=== PATIENT | female | born 1960 | race Caucasian/White ===

== ENCOUNTER 2020-07-03 07:49 | Outpatient (REF) | payer OTHER, SELFPAY ==
[2020-07-03 08:13] LABS: MANUAL DIFF FLAG NO
[2020-07-03 08:15] LABS: Basophils Percent Auto 0.4 % (0-2); Eosinophils Absolute Auto 0.2 X10*3/uL (0.0-0.4); Eosinophils Percent Auto 2.7 % (0-4); Hematocrit 43.5 % (37-47); Hemoglobin 13.6 g/dl (12.0-16.0); Imm Gran Abs Auto 0.02 X10*3/uL (0.00-0.03); Imm Gran Pct Auto 0.3 % (0.0-0.4); Lymphocytes Absolute Auto 1.7 X10*3/uL (1.2-4.9); Lymphocytes Percent Auto 25.4 % (20-40); Mean Corpuscular HGB Conc 31.3 g/dl (31.0-35.0); Mean Corpuscular Volume 80.1 fL (80-98); Mean Platelet Volume 9.3 fL (9.4-12.3); Monocytes Absolute Auto 0.4 X10*3/uL (0.1-1.2); Monocytes Percent Auto 5.2 % (2-11); Neutrophils Absolute Auto 4.5 X10*3/uL (2.0-8.3); Platelet Count 289 X10*3/uL (160-400); Red Blood Count 5.43 X10*6/uL (4.20-5.50); Red Cell Distribution Width 14.6 % (11.0-16.0); White Blood Count 6.7 X10*3/uL (4.8-10.8)
[2020-07-03 08:16] LABS: Appearance Urine CLEAR; Color Urine YELLOW; Glucose Urine UA NEG (NEG); Leukocyte Esterase Urine NEG (NEG); Nitrite Urine NEG (NEG); PH 5.5 (5.0-8.0); Specific Gravity - Urine >= 1.030 (1.005-1.025); Urine Blood NEG (NEG); Urine Ketones NEG (NEG); Urine Protein NEG (NEG-TRACE)
[2020-07-03 08:37] LABS: Estimated Average Glucose 189 mg/dL; Hemoglobin A1c % 8.2 %
[2020-07-03 08:48] LABS: Alanine Aminotransferase 28 U/L (0-31); Albumin Level 4.2 g/dL (3.5-5.0); Alkaline Phosphatase 106 U/L (39-117); Anion Gap 13 (12-20); Aspartate Amino Transferase 20 U/L (5-31); Bilirubin Total 0.8 mg/dL (0.0-1.0); Blood Urea Nitrogen 20 mg/dL (9-16); Carbon Dioxide 27 mmol/L (22-29); Chloride 103 mmol/L (96-108); Cholesterol 216 mg/dL; Estimated Glomerular Filt Rate 59; Glucose Fasting 171 mg/dL (60-99); HDL Cholesterol 57 mg/dL; LDL Cholesterol Calculated 136 mg/dl; Potassium 4.5 mmol/l (3.3-5.1); Sodium 138 mmol/L (135-145); Total Protein 7.8 g/dL (6.5-8.0); Triglycerides 117 mg/dL
[2020-07-03 08:49] LABS: Creatinine Urine 113.69 mg/dL; Microalbum/Creatinine Ratio Ur 49.2 ug/mg cr
[2020-07-03 08:57] LABS: Bacteria Urine TRACE /LPF; RBC Urine 0 /HPF (0); Squamous Epithelial Cell Urine 4+ /LPF; WBC Urine 0 /HPF (0-4)
[2020-07-03 09:10] LABS: TSH reflex Free T4 2.54 mIU/mL (0.32-4.0)
== END 2020-07-03 07:50 | disposition home or self-care (01) ==
LOC: HO.LAB 07:49
PROVIDERS: PCP Internal Medicine; Visit Provider Internal Medicine
DX: E78.00 Pure hypercholesterolemia, unspecified (principal); E11.9 Type 2 diabetes mellitus without complications; R79.89 Other specified abnormal findings of blood chemistry; K21.9 Gastro-esophageal reflux disease without esophagitis; E66.9 Obesity, unspecified
CPT/HCPCS: 36415; 80053; 80061; 81001; 82043; 83036; 84443; 85025

== ENCOUNTER 2020-10-30 07:54 | Outpatient (REF) | payer OTHER, SELFPAY ==
[2020-10-30 09:09] LABS: MANUAL DIFF FLAG NO
[2020-10-30 09:17] LABS: Basophils Percent Auto 0.5 % (0-2); Eosinophils Absolute Auto 0.2 X10*3/uL (0.0-0.4); Hematocrit 40.6 % (37-47); Hemoglobin 12.7 g/dl (12.0-16.0); Imm Gran Abs Auto 0.01 X10*3/uL (0.00-0.03); Imm Gran Pct Auto 0.2 % (0.0-0.4); Lymphocytes Absolute Auto 1.9 X10*3/uL (1.2-4.9); Lymphocytes Percent Auto 28.9 % (20-40); Mean Corpuscular HGB Conc 31.3 g/dl (31.0-35.0); Mean Corpuscular Hemoglobin 24.9 pg (27.0-33.0); Mean Corpuscular Volume 79.6 fL (80-98); Mean Platelet Volume 9.5 fL (9.4-12.3); Monocytes Absolute Auto 0.5 X10*3/uL (0.1-1.2); Monocytes Percent Auto 6.8 % (2-11); Neutrophils Percent Auto 60.6 % (45-73); Platelet Count 236 X10*3/uL (160-400); Red Cell Distribution Width 13.9 % (11.0-16.0); White Blood Count 6.6 X10*3/uL (4.8-10.8)
[2020-10-30 09:33] LABS: Glucose Urine UA NEG (NEG); Leukocyte Esterase Urine NEG (NEG); Nitrite Urine NEG (NEG); PH 5.5 (5.0-8.0); Specific Gravity - Urine >= 1.030 (1.005-1.025); Urine Blood NEG (NEG); Urine Ketones NEG (NEG); Urine Protein TRACE MG/DL (NEG-TRACE)
[2020-10-30 09:34] LABS: Appearance Urine HAZY; Color Urine YELLOW
[2020-10-30 09:35] LABS: Estimated Average Glucose 212 mg/dL
[2020-10-30 09:45] LABS: Alanine Aminotransferase 39 U/L (0-31); Alkaline Phosphatase 116 U/L (39-117); Anion Gap 13 (12-20); Aspartate Amino Transferase 26 U/L (5-31); Bilirubin Total 0.5 mg/dL (0.0-1.0); Blood Urea Nitrogen 18 mg/dL (9-16); Calcium 9.1 mg/dL (8.4-10.2); Carbon Dioxide 26 mmol/L (22-29); Chloride 103 mmol/L (96-108); Cholesterol 237 mg/dL; Estimated Glomerular Filt Rate > 60; Glucose Fasting 193 mg/dL (60-99); HDL Cholesterol 47 mg/dL; LDL Cholesterol Calculated 166 mg/dl; Potassium 4.2 mmol/L (3.3-5.1); Sodium 138 mmol/L (135-145); Total Protein 7.6 g/dL (6.5-8.0); Triglycerides 123 mg/dL
[2020-10-30 09:59] LABS: TSH reflex Free T4 2.27 uIU/mL (0.32-4.0)
[2020-10-30 10:23] LABS: Creatinine Urine 202.92 mg/dL; Microalbum/Creatinine Ratio Ur 45.8 ug/mg cr
== END 2020-10-30 07:55 | disposition home or self-care (01) ==
LOC: HO.LAB 07:54
PROVIDERS: PCP Internal Medicine; Visit Provider Internal Medicine
DX: K21.9 Gastro-esophageal reflux disease without esophagitis (principal); E11.9 Type 2 diabetes mellitus without complications; E78.00 Pure hypercholesterolemia, unspecified; R79.89 Other specified abnormal findings of blood chemistry; E66.9 Obesity, unspecified; Z79.4 Long term (current) use of insulin
CPT/HCPCS: 36415; 80053; 80061; 81003; 82043; 83036; 84443; 85025

== ENCOUNTER 2021-01-25 07:57 | Outpatient (REF) | payer OTHER, SELFPAY ==
[2021-01-25 09:09] LABS: MANUAL DIFF FLAG NO
[2021-01-25 09:14] LABS: Basophils Percent Auto 0.3 % (0-2); Eosinophils Absolute Auto 0.2 X10*3/uL (0.0-0.4); Eosinophils Percent Auto 2.6 % (0-4); Hematocrit 42.2 % (37-47); Imm Gran Abs Auto 0.01 X10*3/uL (0.00-0.03); Imm Gran Pct Auto 0.1 % (0.0-0.4); Lymphocytes Absolute Auto 1.8 X10*3/uL (1.2-4.9); Lymphocytes Percent Auto 23.5 % (20-40); Mean Corpuscular HGB Conc 30.8 g/dl (31.0-35.0); Mean Corpuscular Hemoglobin 24.5 pg (27.0-33.0); Mean Corpuscular Volume 79.6 fL (80-98); Mean Platelet Volume 9.7 fL (9.4-12.3); Monocytes Absolute Auto 0.5 X10*3/uL (0.1-1.2); Monocytes Percent Auto 6.1 % (2-11); Neutrophils Absolute Auto 5.2 X10*3/uL (2.0-8.3); Neutrophils Percent Auto 67.4 % (45-73); Platelet Count 245 X10*3/uL (160-400); Red Cell Distribution Width 14.1 % (11.0-16.0); White Blood Count 7.7 X10*3/uL (4.8-10.8)
[2021-01-25 09:19] LABS: Estimated Average Glucose 220 mg/dL; Hemoglobin A1c % 9.3 %
[2021-01-25 09:25] LABS: Alanine Aminotransferase 27 U/L (0-31); Albumin Level 3.9 g/dL (3.5-5.0); Alkaline Phosphatase 109 U/L (39-117); Anion Gap 11 (12-20); Aspartate Amino Transferase 25 U/L (5-31); Bilirubin Total 0.4 mg/dL (0.0-1.0); Blood Urea Nitrogen 14 mg/dL (9-16); Calcium 9.2 mg/dL (8.4-10.2); Carbon Dioxide 28 mmol/L (22-29); Chloride 104 mmol/L (96-108); Cholesterol 173 mg/dL; Estimated Glomerular Filt Rate 57; Glucose Fasting 140 mg/dL (60-99); HDL Cholesterol 45 mg/dL; Potassium 4.1 mmol/L (3.3-5.1); Sodium 139 mmol/L (135-145); Total Protein 7.3 g/dL (6.5-8.0)
[2021-01-25 09:26] LABS: LDL Cholesterol Calculated 100 mg/dl; Triglycerides 140 mg/dL
[2021-01-25 09:46] LABS: TSH reflex Free T4 2.56 uIU/mL (0.32-4.0)
[2021-01-25 10:46] LABS: Creatinine Urine 172.63 mg/dL; Glucose Urine UA NEG (NEG); Leukocyte Esterase Urine NEG (NEG); Microalbum/Creatinine Ratio Ur 97.3 ug/mg cr; Nitrite Urine NEG (NEG); PH 5.5 (5.0-8.0); Specific Gravity - Urine >= 1.030 (1.005-1.025); Urine Blood NEG (NEG); Urine Ketones NEG (NEG); Urine Protein 1+ MG/DL (NEG-TRACE)
[2021-01-25 10:49] LABS: Appearance Urine HAZY; Color Urine YELLOW
[2021-01-25 11:03] LABS: Bacteria Urine 1+ /LPF; RBC Urine 0-2 /HPF (0); Squamous Epithelial Cell Urine 3+ /LPF
== END 2021-01-25 07:58 | disposition home or self-care (01) ==
LOC: HO.LAB 07:57
PROVIDERS: PCP Internal Medicine; Visit Provider Internal Medicine
DX: K21.9 Gastro-esophageal reflux disease without esophagitis (principal); E11.9 Type 2 diabetes mellitus without complications; E66.9 Obesity, unspecified; E78.00 Pure hypercholesterolemia, unspecified; R79.89 Other specified abnormal findings of blood chemistry; Z79.4 Long term (current) use of insulin
CPT/HCPCS: 36415; 80053; 80061; 81001; 82043; 83036; 84443; 85025

== ENCOUNTER 2021-01-31 14:51 | Emergency (ER) | payer OTHER, SELFPAY ==
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
[2021-01-31 15:19] VITALS: BP 165/84; PULSE 78; RESP 18; TEMP 36.7; O2SAT 100; BMI 34.6
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
[2021-01-31] MEDS: diazePAM 5 MG TABLET PO (16:52)
== END 2021-01-31 17:19 | disposition home or self-care (01) ==
PROVIDERS: Emergency Provider Emergency Medicine; PCP Internal Medicine
DX: S49.91XA Unspecified injury of right shoulder and upper arm, initial encounter (principal); M25.511 Pain in right shoulder; V43.52XA Car driver injured in collision with other type car in traffic accident, initial encounter; Y93.9 Activity, unspecified; Y92.410 Unspecified street and highway as the place of occurrence of the external cause; Y99.9 Unspecified external cause status; Z79.899 Other long term (current) drug therapy
CPT/HCPCS: 73030; 99283

== ENCOUNTER 2021-10-19 07:52 | Outpatient (REF) | payer OTHER, SELFPAY ==
[2021-10-19 08:23] LABS: MANUAL DIFF FLAG NO
[2021-10-19 08:44] LABS: Basophils Percent Auto 0.3 % (0-2); Eosinophils Absolute Auto 0.1 X10*3/uL (0.0-0.4); Eosinophils Percent Auto 1.4 % (0-4); Hematocrit 42.1 % (37.0-47.0); Hemoglobin 13.2 g/dl (12.0-16.0); Imm Gran Abs Auto 0.02 X10*3/uL (0.00-0.03); Imm Gran Pct Auto 0.3 % (0.0-0.4); Lymphocytes Absolute Auto 1.5 X10*3/uL (1.2-4.9); Lymphocytes Percent Auto 20.2 % (20-40); Mean Corpuscular HGB Conc 31.4 g/dl (31.0-35.0); Mean Corpuscular Hemoglobin 25.3 pg (27.0-33.0); Mean Corpuscular Volume 80.8 fL (80.0-98.0); Mean Platelet Volume 9.6 fL (9.4-12.3); Monocytes Absolute Auto 0.4 X10*3/uL (0.1-1.2); Monocytes Percent Auto 5.8 % (2-11); Neutrophils Absolute Auto 5.3 x10*3/uL (2.0-8.3); Platelet Count 240 X10*3/uL (160-400); Red Blood Count 5.21 X10*6/uL (4.20-5.50); Red Cell Distribution Width 14.9 % (11.0-16.0); White Blood Count 7.4 X10*3/uL (4.8-10.8)
[2021-10-19 08:54] LABS: Estimated Average Glucose 186 mg/dL; Hemoglobin A1c % 8.1 %
[2021-10-19 09:07] LABS: Alanine Aminotransferase 29 U/L (0-31); Albumin Level 4.1 g/dL (3.5-5.0); Alkaline Phosphatase 102 U/L (39-117); Anion Gap 12 (12-20); Aspartate Amino Transferase 21 U/L (5-31); Bilirubin Total 0.6 mg/dL (0.0-1.0); Blood Urea Nitrogen 20 mg/dL (9-16); Calcium 9.8 mg/dL (8.4-10.2); Carbon Dioxide 27 mmol/L (22-29); Chloride 105 mmol/L (96-108); Cholesterol 245 mg/dL; Estimated Glomerular Filt Rate 53; Glucose Fasting 124 mg/dL (60-99); HDL Cholesterol 49 mg/dL; LDL Cholesterol Calculated 172 mg/dl; Potassium 4.8 mmol/L (3.3-5.1); Sodium 139 mmol/L (135-145); Total Protein 7.7 g/dL (6.5-8.0); Triglycerides 124 mg/dL
[2021-10-19 09:17] LABS: Appearance Urine CLEAR; Color Urine YELLOW; Glucose Urine UA NEG (NEG); Leukocyte Esterase Urine NEG (NEG); Nitrite Urine NEG (NEG); PH 5.5 (5.0-8.0); Specific Gravity - Urine >= 1.030 (1.005-1.025); Urine Blood NEG (NEG); Urine Ketones NEG (NEG); Urine Protein TRACE MG/DL (NEG-TRACE)
[2021-10-19 09:29] LABS: TSH reflex Free T4 3.07 uIU/mL (0.32-4.0); Vitamin D 25-OH Total 19.5 ng/mL (>30)
== END 2021-10-19 07:53 | disposition home or self-care (01) ==
LOC: HO.LAB 07:52
PROVIDERS: PCP Internal Medicine; Visit Provider Internal Medicine
DX: E78.00 Pure hypercholesterolemia, unspecified (principal); E55.9 Vitamin D deficiency, unspecified; E11.9 Type 2 diabetes mellitus without complications; I10 Essential (primary) hypertension
CPT/HCPCS: 36415; 80053; 80061; 81003; 82306; 83036; 84443; 85025

== ENCOUNTER 2022-02-01 08:06 | Outpatient (REF) | payer OTHER, SELFPAY ==
[2022-02-01 08:25] LABS: MANUAL DIFF FLAG NO
[2022-02-01 08:34] LABS: Basophils Percent Auto 0.4 % (0-2); Eosinophils Absolute Auto 0.1 X10*3/uL (0.0-0.4); Eosinophils Percent Auto 1.8 % (0-4); Hematocrit 41.9 % (37.0-47.0); Hemoglobin 12.9 g/dl (12.0-16.0); Imm Gran Abs Auto 0.02 X10*3/uL (0.00-0.03); Imm Gran Pct Auto 0.3 % (0.0-0.4); Lymphocytes Absolute Auto 2.1 X10*3/uL (1.2-4.9); Lymphocytes Percent Auto 27.4 % (20-40); Mean Corpuscular HGB Conc 30.8 g/dl (31.0-35.0); Mean Corpuscular Hemoglobin 24.4 pg (27.0-33.0); Mean Corpuscular Volume 79.4 fL (80.0-98.0); Mean Platelet Volume 9.4 fL (9.4-12.3); Monocytes Absolute Auto 0.4 X10*3/uL (0.1-1.2); Monocytes Percent Auto 5.2 % (2-11); Neutrophils Percent Auto 64.9 % (45-73); Platelet Count 241 X10*3/uL (160-400); Red Blood Count 5.28 X10*6/uL (4.20-5.50); Red Cell Distribution Width 14.5 % (11.0-16.0); White Blood Count 7.7 X10*3/uL (4.8-10.8)
[2022-02-01 08:41] LABS: Estimated Average Glucose 183 mg/dL
[2022-02-01 08:49] LABS: Appearance Urine CLEAR; Color Urine YELLOW; Glucose Urine UA NEG (NEG); Leukocyte Esterase Urine NEG (NEG); Nitrite Urine NEG (NEG); PH 5.5 (5.0-8.0); Specific Gravity - Urine 1.025 (1.005-1.025); Urine Blood NEG (NEG); Urine Ketones NEG (NEG); Urine Protein TRACE MG/DL (NEG-TRACE)
[2022-02-01 09:01] LABS: Alanine Aminotransferase 39 U/L (0-31); Alkaline Phosphatase 108 U/L (39-117); Anion Gap 12 (12-20); Aspartate Amino Transferase 27 U/L (5-31); Bilirubin Total 0.6 mg/dL (0.0-1.0); Blood Urea Nitrogen 20 mg/dL (9-16); Calcium 9.2 mg/dL (8.4-10.2); Carbon Dioxide 27 mmol/L (22-29); Chloride 104 mmol/L (96-108); Cholesterol 191 mg/dL; Estimated Glomerular Filt Rate 55; Glucose Fasting 129 mg/dL (60-99); HDL Cholesterol 56 mg/dL; LDL Cholesterol Calculated 114 mg/dl; Sodium 139 mmol/L (135-145); Total Protein 7.5 g/dL (6.5-8.0); Triglycerides 107 mg/dL
[2022-02-01 09:09] LABS: Creatinine Urine 110.24 mg/dL; Microalbum/Creatinine Ratio Ur 102.5 ug/mg cr
[2022-02-01 09:23] LABS: TSH reflex Free T4 3.38 uIU/mL (0.32-4.0); Vitamin D 25-OH Total 33.4 ng/mL (>30)
== END 2022-02-01 08:07 | disposition home or self-care (01) ==
LOC: HO.LAB 08:06
PROVIDERS: PCP Internal Medicine; Visit Provider Internal Medicine
DX: I10 Essential (primary) hypertension (principal); E55.9 Vitamin D deficiency, unspecified; E11.9 Type 2 diabetes mellitus without complications; E78.00 Pure hypercholesterolemia, unspecified
CPT/HCPCS: 36415; 80053; 80061; 81003; 82043; 82306; 83036; 84443; 85025

== ENCOUNTER 2022-04-12 08:26 | Outpatient (REF) | payer OTHER, SELFPAY ==
[2022-04-12 09:00] LABS: IDNOW Serial# 55D5AD1C
[2022-04-12 09:01] LABS: COVID-19 Test Positive (Negative)
== END 2022-04-12 08:27 | disposition home or self-care (01) ==
LOC: HO.LAB 08:26
PROVIDERS: Visit Provider Internal Medicine
DX: Z20.822 Contact with and (suspected) exposure to COVID-19 (principal)
CPT/HCPCS: 87635; C9803

== ENCOUNTER 2022-05-27 08:06 | Outpatient (REF) | payer OTHER, SELFPAY ==
[2022-05-27 08:31] LABS: MANUAL DIFF FLAG NO
[2022-05-27 08:47] LABS: Basophils Percent Auto 0.5 % (0-2); Eosinophils Absolute Auto 0.1 X10*3/uL (0.0-0.4); Eosinophils Percent Auto 1.9 % (0-4); Hematocrit 43.7 % (37.0-47.0); Hemoglobin 13.7 g/dl (12.0-16.0); Imm Gran Abs Auto 0.01 X10*3/uL (0.00-0.03); Imm Gran Pct Auto 0.1 % (0.0-0.4); Lymphocytes Absolute Auto 1.8 X10*3/uL (1.2-4.9); Lymphocytes Percent Auto 24.8 % (20-40); Mean Corpuscular HGB Conc 31.4 g/dl (31.0-35.0); Mean Corpuscular Hemoglobin 24.7 pg (27.0-33.0); Mean Corpuscular Volume 78.9 fL (80.0-98.0); Monocytes Absolute Auto 0.5 X10*3/uL (0.1-1.2); Monocytes Percent Auto 6.8 % (2-11); Neutrophils Absolute Auto 4.8 x10*3/uL (2.0-8.3); Neutrophils Percent Auto 65.9 % (45-73); Platelet Count 255 X10*3/uL (160-400); Red Blood Count 5.54 X10*6/uL (4.20-5.50); Red Cell Distribution Width 14.1 % (11.0-16.0); White Blood Count 7.3 X10*3/uL (4.8-10.8)
[2022-05-27 08:53] LABS: Estimated Average Glucose 183 mg/dL
[2022-05-27 09:06] LABS: Appearance Urine Clear; Color Urine Yellow; Glucose Urine UA 250 mg/dL (Negative); Leukocyte Esterase Urine Negative (Negative); Nitrite Urine Negative (Negative); Urine Blood Negative (Negative); Urine Ketones Negative (Negative); Urine Protein Trace mg/dL (Neg-Trace)
[2022-05-27 09:08] LABS: Alanine Aminotransferase 33 U/L (0-31); Albumin Level 4.2 g/dL (3.5-5.0); Alkaline Phosphatase 111 U/L (39-117); Anion Gap 17 (12-20); Aspartate Amino Transferase 25 U/L (5-31); Bilirubin Total 0.6 mg/dL (0.0-1.0); Blood Urea Nitrogen 20 mg/dL (9-16); Calcium 9.8 mg/dL (8.4-10.2); Carbon Dioxide 24 mmol/L (22-29); Chloride 103 mmol/L (96-108); Cholesterol 178 mg/dL; Estimated Glomerular Filt Rate 50; Glucose Fasting 136 mg/dL (60-99); HDL Cholesterol 51 mg/dL; LDL Cholesterol Calculated 107 mg/dl; Potassium 4.6 mmol/L (3.3-5.1); Sodium 139 mmol/L (135-145); Total Protein 7.8 g/dL (6.5-8.0); Triglycerides 103 mg/dL
[2022-05-27 09:31] LABS: TSH reflex Free T4 2.26 uIU/mL (0.32-4.0); Vitamin D 25-OH Total 33.6 ng/mL (>30)
[2022-05-27 09:38] LABS: Creatinine Urine 148.74 mg/dL; Microalbum/Creatinine Ratio Ur 55.1 ug/mg cr
== END 2022-05-27 08:07 | disposition home or self-care (01) ==
LOC: HO.LAB 08:06
PROVIDERS: PCP Internal Medicine; Visit Provider Internal Medicine
DX: E11.9 Type 2 diabetes mellitus without complications (principal); E78.00 Pure hypercholesterolemia, unspecified; E55.9 Vitamin D deficiency, unspecified; I10 Essential (primary) hypertension
CPT/HCPCS: 36415; 80053; 80061; 81003; 82043; 82306; 83036; 84443; 85025

== ENCOUNTER 2022-06-16 10:05 | Outpatient (REF) | payer OTHER, SELFPAY ==
[2022-06-16 10:51] LABS: COVID-19 Test Negative (Negative); IDNOW Serial# BCCEAD1C
== END 2022-06-16 10:06 | disposition home or self-care (01) ==
LOC: HO.LAB 10:05
PROVIDERS: Visit Provider Internal Medicine
DX: Z20.822 Contact with and (suspected) exposure to COVID-19 (principal)
CPT/HCPCS: 87635; C9803

== ENCOUNTER 2022-10-21 09:19 | Outpatient (REF) | payer OTHER, SELFPAY ==
[2022-10-21 09:29] LABS: MANUAL DIFF FLAG NO
[2022-10-21 10:29] LABS: Basophils Percent Auto 0.4 % (0-2); Eosinophils Absolute Auto 0.1 X10*3/uL (0.0-0.4); Eosinophils Percent Auto 0.9 % (0-4); Hematocrit 42.5 % (37.0-47.0); Hemoglobin 13.5 g/dl (12.0-16.0); Imm Gran Abs Auto 0.02 X10*3/uL (0.00-0.03); Imm Gran Pct Auto 0.3 % (0.0-0.4); Lymphocytes Absolute Auto 1.8 X10*3/uL (1.2-4.9); Lymphocytes Percent Auto 23.5 % (20-40); Mean Corpuscular HGB Conc 31.8 g/dl (31.0-35.0); Mean Corpuscular Volume 78.8 fL (80.0-98.0); Mean Platelet Volume 9.8 fL (9.4-12.3); Monocytes Absolute Auto 0.4 X10*3/uL (0.1-1.2); Monocytes Percent Auto 4.8 % (2-11); Neutrophils Absolute Auto 5.3 x10*3/uL (2.0-8.3); Neutrophils Percent Auto 70.1 % (45-73); Platelet Count 240 X10*3/uL (160-400); Red Blood Count 5.39 X10*6/uL (4.20-5.50); Red Cell Distribution Width 14.4 % (11.0-16.0); White Blood Count 7.5 X10*3/uL (4.8-10.8)
[2022-10-21 10:39] LABS: Appearance Urine Cloudy; Color Urine Yellow; Glucose Urine UA Negative (Negative); Leukocyte Esterase Urine Negative (Negative); Nitrite Urine Negative (Negative); Specific Gravity - Urine 1.015 (1.005-1.025); UMIC TRIGGER UACC YES; Urine Blood Negative (Negative); Urine Ketones Negative (Negative); Urine Protein 30 (1+) mg/dL (Neg-Trace)
[2022-10-21 10:44] LABS: Bacteria Urine 1+ (None Seen); Hyaline Casts Urine 0-2 /LPF (0-2); RBC Urine 0-2 /HPF (0-2); Squamous Epithelial Cell Urine >20 /HPF (0-2); WBC Urine 0-5 /HPF (0-5)
[2022-10-21 11:01] LABS: Creatinine Urine 111.96 mg/dL
[2022-10-21 11:22] LABS: Estimated Average Glucose 189 mg/dL; Hemoglobin A1c % 8.2 %
[2022-10-21 11:28] LABS: Alanine Aminotransferase 48 U/L (0-31); Alkaline Phosphatase 118 U/L (39-117); Anion Gap 13 (12-20); Aspartate Amino Transferase 30 U/L (5-31); Bilirubin Total 0.9 mg/dL (0.0-1.0); Blood Urea Nitrogen 15 mg/dL (9-16); Calcium 9.4 mg/dL (8.4-10.2); Carbon Dioxide 27 mmol/L (22-29); Chloride 104 mmol/L (96-108); Cholesterol 197 mg/dL; Estimated Glomerular Filt Rate > 60; Glucose Fasting 102 mg/dL (60-99); HDL Cholesterol 55 mg/dL; LDL Cholesterol Calculated 119 mg/dl; Sodium 140 mmol/L (135-145); Total Protein 7.3 g/dL (6.5-8.0); Triglycerides 119 mg/dL
[2022-10-21 11:45] LABS: TSH reflex Free T4 2.98 uIU/mL (0.32-4.0)
== END 2022-10-21 09:20 | disposition home or self-care (01) ==
LOC: HO.LAB 09:19
PROVIDERS: PCP Internal Medicine; Visit Provider Internal Medicine
DX: E78.00 Pure hypercholesterolemia, unspecified (principal); E55.9 Vitamin D deficiency, unspecified; R30.0 Dysuria; I10 Essential (primary) hypertension; E11.9 Type 2 diabetes mellitus without complications
CPT/HCPCS: 36415; 80053; 80061; 81001; 82043; 82306; 83036; 84443; 85025

== ENCOUNTER 2022-11-10 22:39 | Emergency (ER) | payer OTHER, SELFPAY ==
--- NOTE | ~2022-11-10 | CT_ITS ---
EXAMINATION: CT ABDOMEN AND PELVIS WITH CONTRAST CLINICAL INFORMATION: Acute severe generalized abdominal pain COMPARISON: 10/01/2017 TECHNIQUE: Multidetector volumetric images were obtained from the superior aspect of the liver through the pubic symphysis following administration 85 mL of Omnipaque 350 intravenous contrast. Sagittal and coronal reformatted images were obtained on the technologist's workstation. Oral contrast: No This CT examination was performed using dose optimization techniques as appropriate, variously including the following: *Automated exposure control *Adjustment of mA and/or kV according to patient size (this includes techniques or standardized protocols for targeted exams where dose is matched to indication/reason for exam; i.e. extremities or head) *Use of iterative reconstruction technique DLP: 596 mGy-cm FINDINGS: LUNG BASES: The visualized lung bases are unremarkable. Coronary artery calcifications are present. LIVER, GALLBLADDER, AND BILIARY TREE: The liver is normal in size, shape, and attenuation. No focal hepatic lesion or biliary ductal dilatation is present. Patient is status post cholecystectomy. PANCREAS: Unremarkable. SPLEEN: Unremarkable. ADRENAL GLANDS: Unremarkable. KIDNEYS AND URETERS: Left renal sinus cysts noted; no follow-up recommended. Bilateral nephrograms are symmetric. No hydronephrosis or obstructing calculus identified. BLADDER: Minimally distended and not well evaluated. GASTROINTESTINAL TRACT: There is wall thickening of multiple small bowel loops in the right lower abdomen and pelvis, most suspicious for an enteritis. There is associated adjacent mesenteric stranding as well as a small amount of free fluid in the abdomen and pelvis. The third portion of the duodenum also appears thick-walled. No evidence of bowel obstruction. Colonic diverticulosis is noted. Appendix is nondilated. No free air is seen. ABDOMINAL WALL: No significant hernia is appreciated. LYMPH NODES: Normal. VASCULAR: There is atherosclerotic calcification along the aorta. PELVIC VISCERA: Lobulated contour of the uterus in keeping with fibroids. OSSEOUS STRUCTURES: Scattered degenerative changes of the spine. CT/CT abdomen pelvis w IV con IMPRESSION: 1. Wall thickening of multiple small bowel loops in the right lower abdomen and pelvis, most suspicious for an enteritis. Small amount of free fluid in the abdomen and pelvis. Sacral segment of the duodenum also noted. 2. Coronary artery calcifications. Correlation with cardiac risk factors is recommended. 3. Fibroid uterus.
[2022-11-10 22:45] VITALS: BP 110/89; PULSE 108; RESP 20; TEMP 36.8; O2SAT 97; BMI 35.5
[2022-11-10] MEDS: Ondansetron ODT 4 MG TAB.RAPDIS TRANSLINGU (23:16)
[2022-11-11 00:17] LABS: MANUAL DIFF FLAG NO
[2022-11-11 00:18] LABS: Basophils Percent Auto 0.2 % (0-2); Eosinophils Percent Auto 0.1 % (0-4); Hemoglobin 15.6 g/dl (12.0-16.0); Imm Gran Abs Auto 0.06 X10*3/uL (0.00-0.03); Imm Gran Pct Auto 0.4 % (0.0-0.4); Mean Corpuscular HGB Conc 31.8 g/dl (31.0-35.0); Mean Corpuscular Volume 78.7 fL (80.0-98.0); Mean Platelet Volume 9.7 fL (9.4-12.3); Monocytes Absolute Auto 0.6 X10*3/uL (0.1-1.2); Monocytes Percent Auto 4.2 % (2-11); Neutrophils Absolute Auto 12.6 x10*3/uL (2.0-8.3); Neutrophils Percent Auto 88.1 % (45-73); Platelet Count 297 X10*3/uL (160-400); Red Blood Count 6.23 X10*6/uL (4.20-5.50); Red Cell Distribution Width 14.8 % (11.0-16.0); White Blood Count 14.3 X10*3/uL (4.8-10.8)
[2022-11-11 00:34] LABS: Alanine Aminotransferase 33 U/L (0-31); Albumin Level 4.2 g/dL (3.5-5.0); Alkaline Phosphatase 111 U/L (39-117); Anion Gap 16 (12-20); Aspartate Amino Transferase 27 U/L (5-31); Blood Urea Nitrogen 23 mg/dL (9-16); Calcium 9.7 mg/dL (8.4-10.2); Carbon Dioxide 25 mmol/L (22-29); Chloride 103 mmol/L (96-108); Creatinine Clr Calc Pharmacy 37.1; Estimated Glomerular Filt Rate 39; Glucose Random 287 mg/dL (60-115); Lipase 22 U/L (8-78); Potassium 4.6 mmol/L (3.3-5.1); Sodium 139 mmol/L (135-145); Total Protein 7.4 g/dL (6.5-8.0)
--- NOTE | 2022-11-11 00:37 | ED.ABDPAIN ---
HPI - Abdominal Pain General Chief Complaint: Abdominal Pain Stated Complaint: abd pain Time Seen by Provider: 11/11/22 00:28 Source: patient Mode of arrival: ambulatory Limitations: no limitations History of Present Illness MD elicited complaint: abdominal pain Pertinent past history: other (diverticulitis) Onset (ago): day(s) (1) Pain Consistency: constant Location: diffuse Severity: severe Quality: cramping and aching Radiation: none Migration to: other (upper abd) Exacerbating factors: movement Associated symptoms: nausea, vomiting and chills Related Data Home Medications Medication Instructions Recorded Confirmed insulin lispro 100 unit/mL unit subcut 07/07/20 11/06/22 subcutaneous pen blood sugar diagnostic #10 ea 11/08/20 11/06/22 insulin aspart U-100 100 unit/mL 1 sliding scale dose subcut 02/03/22 11/06/22 (3 mL) subcutaneous pen (Novolog USEASDIRECTD FlexPen U-100 Insulin aspart) Previous Rx's Medication Instructions Recorded pen needle, diabetic 32 gauge x 1 ea subcut QID #270 ea 10/04/20/32 (BD Ultra-Fine [place] Pen Needle) lancets 28 gauge (FreeStyle 28 gauge topical TID #100 caps 01/30/21 Lancets) blood sugar diagnostic (FreeStyle #100 ea 08/23/22 Lite Strips) FreeStyle Raisa 14 Day [place] #1 ea 11/06/22 (flash glucose scanning reader) FreeStyle Raisa 14 Day Sensor #1 ea 11/06/22 (flash glucose sensor) atorvastatin 20 mg tablet 20 mg PO DAILY 90 days #90 tabs 11/06/22 cholecalciferol (vitamin D3) 50 50 mcg PO DAILY 90 days #90 caps 11/06/22 mcg (2,000 unit) capsule insulin glargine 100 unit/mL (3 33 unit (0.33 mL) subcut BEDTIME 11/06/22 mL) subcutaneous pen (Lantus 60 days #19.8 mL Solostar U-100 Insulin) lisinopril 5 mg tablet 5 mg PO DAILY 90 days #90 tabs 11/06/22 omeprazole 20 mg capsule,delayed 20 mg PO DAILY #30 caps 11/06/22 release dicyclomine 20 mg tablet 20 mg PO TID PRN abdominal 11/11/22 discomfort #14 tabs ondansetron 4 mg disintegrating 4 mg PO Q8H PRN nausea and 11/11/22 tablet vomiting #10 tabs Allergies Allergy/AdvReac Type Severity Reaction Status Date / Time No Known Allergies Allergy Mild NOT Verified 11/10/22 22:50 APPLICABLE [facility] Past Medical History Medical History Benign essential hypertension Depression Elevated LFTs GERD without esophagitis Obesity (BMI 30-39.9) Pure hypercholesterolemia Type 2 diabetes mellitus without complication, with long-term current use of insulin Vitamin D deficiency Surgical History History of section History of excision of pilonidal cyst History of laparoscopic cholecystectomy History of tubal ligation Family History Family History Father Medical history unknown Mother Medical history unknown Maternal Grandmother S/P CABG x 1 Myocardial infarction Family/Other Renal cell cancer Social History Social History Housing: House Alcohol intake: current Alcohol intake frequency: does not drink Patient Tobacco Use Status: Never used Tobacco Second Hand Smoke Exposure: No Advance Directives: No Advance Directives Information Provided: Yes service: No Current occupational status: retired Cognitive needs: No Hearing needs: No Vision needs: Yes (reading glasses) Physical Exam ED Vital Signs: Vital Signs - 24 hr 11/10/22 22:45 Temperature 98.2 F Pulse Rate 108 H Respiratory Rate 20 Blood Pressure 110/89 Pulse Oximetry 97 Oxygen Delivery Method Room Air BMI result Body Mass Index 35.5 GEN: Well developed, no acute distress, alert, oriented HEENT: Normocephalic, atraumatic, normal external ears, nose appears normal, no oropharyngeal edema or exudates Eyes: Normal to appearance Neck: Supple, no lymphadenopathy Respiratory: Talks in complete sentences, no respiratory distress, clear to auscultation bilaterally Cardiovascular: Regular rate and rhythm, no murmurs rubs or gallops Abdomen: Soft, generalized tenderness with guarding, no rebound Back: No CVA tenderness Extremities: No clubbing cyanosis or edema Neurologic: No focal neurologic deficits, cranial nerves 2-12 intact, strength is 5/5 bilaterally Skin: No rash Course Course Course Narrative: Patient presents with acute abdominal pain, history of diverticulitis. Examination revealed diffuse tenderness with guarding no rebound patient of CT scan, analgesics, antiemetics, IV fluids Reevaluation(s) Reevaluation #1: patient is feeling better. Disccussed results. Will d/c with close follow up. Return for worsening or cocerning symptoms. Medical Decision Making Medical Decision Making MDM Narrative: Differential diagnosis includes: diverticulitis, colitis, IBD. IBS, mesenteric ischemia, mesenteric adenitis, vascular. Abdominal exam without peritoneal signs. No evidence of acute abdomen at this time. Well appearing. Low suspicion for acute hepatobiliary disease (includng acute cholecystitis), acute pancreatitis, PUD (including perforation), acute infectious processes (pneumonia, hepatitis, pyelonephritis), acute appendicitis, vascular catastrophe, bowel obstruction or viscus perforation. Presentation not consistent with other acute, emergent causes of abdominal pain at this time. Plan: labs, UA, CT AP, pain control, serial reassessment Differential Diagnosis Differential Diagnoses: The differential diagnosis associated with the presentation includes (diverticulitis, colitis, IBD. IBS, mesenteric ischemia, mesenteric adenitis, vascula) Admission/Observation Consideration of admission/observation: Escalation of care including admission/observation considered Lab Data MDM Lab Attestation statement: I reviewed the patient's lab results. 11/11/22 00:13 11/11/22 00:13 Labs: Lab Results 11/11/22 11/11/22 11/11/22 Range/Units 00:13 00:13 00:41 WBC 14.3 H (4.8-10.8) X10*3/uL RBC 6.23 H (4.20-5.50) X10*6/uL Hgb 15.6 (12.0-16.0) g/dl Hct 49.0 H (37.0-47.0) % MCV 78.7 L (80.0-98.0) fL MCH 25.0 L (27.0-33.0) pg MCHC 31.8 (31.0-35.0) g/dl RDW 14.8 (11.0-16.0) % Plt Count 297 (160-400) X10*3/uL MPV 9.7 (9.4-12.3) fL Immature Gran % (Auto) 0.4 (0.0-0.4) % Neut % (Auto) 88.1 H (45-73) % Lymph % (Auto) 7.0 L (20-40) % [place] % (Auto) 4.2 (2-11) % Eos % (Auto) 0.1 (0-4) % Baso % (Auto) 0.2 (0-2) % Lymph # (Auto) 1.0 L (1.2-4.9) X10*3/uL [place] # (Auto) 0.6 (0.1-1.2) X10*3/uL Eos # (Auto) 0.0 (0.0-0.4) X10*3/uL Baso # (Auto) 0.0 (0.0-0.2) X10*3/uL Abs Immat Gran (auto) 0.06 H (0.00-0.03) X10*3/uL Absolute Neuts (auto) 12.6 H (2.0-8.3) x10*3/uL Absolute Nucleated RBC 0.000 (0.0-0.012) X10*3/uL Nucleated RBC % (auto) 0.0 (0.0-0.2) /100WBC Sodium 139 (135-145) mmol/L Potassium 4.6 (3.3-5.1) mmol/L Chloride 103 (96-108) mmol/L Carbon Dioxide 25 (22-29) mmol/L Anion Gap 16 (12-20) BUN 23 H (9-16) mg/dL Creatinine 1.37 (0.5-1.4) mg/dL Estim Creat Clear Calc 37.1 Estimated GFR 39 Random Glucose 287 H (60-115) mg/dL Calcium 9.7 (8.4-10.2) mg/dL Total Bilirubin 1.0 (0.0-1.0) mg/dL AST 27 (5-31) U/L ALT 33 H (0-31) U/L Alkaline Phosphatase 111 (39-117) U/L Total Protein 7.4 (6.5-8.0) g/dL Albumin 4.2 (3.5-5.0) g/dL Lipase 22 (8-78) U/L Urine Color Yellow Urine Appearance Clear Urine pH 5.5 (5.0-9.0) Ur Specific [place] >= 1.030 H (1.005-1.025) Urine Protein 30 (1+) H (Neg-Trace) mg/dL Urine Glucose (UA) 250 H (Negative) mg/dL Urine Ketones Trace (Negative) mg/dL Urine Blood Negative (Negative) Urine Nitrite Negative (Negative) Ur Leukocyte Esterase Negative (Negative) Urine RBC 3-5 H (0-2) /HPF Urine WBC 6-10 H (0-5) /HPF Ur Squamous Epith Cells 6-10 (0-2) /HPF Urine Bacteria Trace (None Seen) Hyaline Casts 0-2 (0-2) /LPF Independent Interpretation I performed an independent interpretation of an: CT Scan (No diverticulitis or perforation) Radiology Impression Discussion of test interpretation with radiology: I have reviewed the radiologist's reading. ( CT/CT abdomen pelvis w IV con IMPRESSION: 1. Wall thickening of multiple small bowel loops in the right lower abdomen and pelvis, most suspicious for an enteritis. Small amount of free fluid in the abdomen and pelvis. Sacral segment of the duodenum also noted. 2. Coronary artery) Prescription Management I considered prescription management with: Pain Medication and Antibiotic Medications Administered Discontinued Medications Generic Name Dose Route Start Last Admin Trade Name Freq PRN Reason Stop Dose Admin Sodium Chloride 1,000 mls @ 999 mls/hr 11/11/22 00:45 11/11/22 00:47 Ns IV 11/11/22 01:45 999 mls/hr .Q1H1M SAUL Administration Metoclopramide HCl 10 mg 11/11/22 00:35 11/11/22 00:52 Metoclopramide Hcl 10 Mg/2 Ml Vial IVPUSH 11/11/22 00:36 10 mg ONCE ONE Administration Morphine Sulfate 4 mg 11/11/22 00:35 11/11/22 00:52 Morphine Sulfate 4 Mg/Ml Cartridge IVPUSH 11/11/22 00:36 4 mg ONCE ONE Administration Protocol Ondansetron HCl 4 mg 11/10/22 22:52 11/10/22 23:16 Ondansetron Odt 4 Mg Tab.Rapdis TRANSLINGU 11/10/22 22:53 4 mg ONCE ONE Administration Discharge Plan Discharge Clinical Impression: Abdominal pain, Enteritis Patient Disposition: Home, Self-Care Instructions: Enteritis (ED) Prescriptions: New ondansetron 4 mg tablet,disintegrating 4 mg PO Q8H PRN (Reason: nausea and vomiting) Qty: 10 0RF dicyclomine 20 mg tablet 20 mg PO TID PRN (Reason: abdominal discomfort) Qty: 14 0RF No Action pen needle, diabetic [BD Ultra-Fine [place] Pen Needle] 32 gauge x 5/32 needle 1 ea subcut QID Qty: 270 0RF lancets [FreeStyle Lancets] 28 gauge misc 28 gauge topical TID Qty: 100 11RF (DME) FreeStyle Lite Strips Strip See Rx Instructions .ROUTE .MEDSUPPLY Qty: 100 0RF Rx Instructions: As directed- Test twice a day insulin lispro 100 unit/mL insulin pen subcut (DME) FreeStyle Lite Strips Strip See Rx Instructions Not Applicable QID Qty: 10 Rx Instructions: As directed insulin aspart U-100 [Novolog FlexPen U-100 Insulin] 100 unit/mL (3 mL) insulin pen 1 sliding scale dose subcut USEASDIRECTD cholecalciferol (vitamin D3) 50 mcg (2,000 unit) capsule 50 mcg PO DAILY 90 Days Qty: 90 3RF Lantus Solostar U-100 Insulin 100 unit/mL (3 mL) insulin pen 33 unit subcut BEDTIME 60 Days Qty: 19.8 5RF atorvastatin 20 mg tablet 20 mg PO DAILY 90 Days Qty: 90 1RF lisinopril 5 mg tablet 5 mg PO DAILY 90 Days Qty: 90 1RF (DME) FreeStyle Raisa 14 Day Sensor Kit See Rx Instructions .Route Qty: 1 5RF Rx Instructions: As directed (DME) FreeStyle Raisa 14 Day [place] Misc See Rx Instructions .Route Qty: 1 5RF Rx Instructions: As directed omeprazole 20 mg capsule,delayed release(DR/EC) 20 mg PO DAILY Qty: 30 2RF Referrals: Roman Trinh MD [Primary Care Provider] - 3 days
[2022-11-11] MEDS: 0.9 % Sodium Chloride 1,000 ML 999 ML IV (00:47)
[2022-11-11] MEDS: Metoclopramide HCl 10 MG/2 ML VIAL IVPUSH (00:52)
[2022-11-11] MEDS: Morphine Sulfate 4 MG/ML CARTRIDGE IVPUSH (00:52)
[2022-11-11 00:54] LABS: Appearance Urine Clear; Color Urine Yellow; Glucose Urine UA 250 mg/dL (Negative); Leukocyte Esterase Urine Negative (Negative); Nitrite Urine Negative (Negative); PH 5.5 (5.0-9.0); Specific Gravity - Urine >= 1.030 (1.005-1.025); UMIC TRIGGER UACC YES; Urine Blood Negative (Negative); Urine Ketones Trace mg/dL (Negative); Urine Protein 30 (1+) mg/dL (Neg-Trace)
[2022-11-11 00:55] LABS: Bacteria Urine Trace (None Seen); Hyaline Casts Urine 0-2 /LPF (0-2); UACC Culture Trigger YES
== END 2022-11-11 02:34 | disposition home or self-care (01) ==
PROVIDERS: Emergency Provider Emergency Medicine; PCP Internal Medicine
DX: K52.9 Noninfective gastroenteritis and colitis, unspecified (principal); R10.10 Upper abdominal pain, unspecified; E11.9 Type 2 diabetes mellitus without complications; I10 Essential (primary) hypertension; E78.5 Hyperlipidemia, unspecified; Z79.4 Long term (current) use of insulin; Z79.899 Other long term (current) drug therapy; Z79.02 Long term (current) use of antithrombotics/antiplatelets
CPT/HCPCS: 36415; 74177; 80053; 81001; 83690; 85025; 87086; 96361; 96374; 96375; 99284; J2270; J2765

== ENCOUNTER 2023-02-03 07:44 | Outpatient (REF) | payer OTHER, SELFPAY ==
[2023-02-03 07:56] LABS: MANUAL DIFF FLAG NO
[2023-02-03 08:12] LABS: Basophils Absolute Auto 0.1 X10*3/uL (0.0-0.2); Basophils Percent Auto 0.6 % (0-2); Eosinophils Absolute Auto 0.1 X10*3/uL (0.0-0.4); Eosinophils Percent Auto 1.2 % (0-4); Hematocrit 44.7 % (37.0-47.0); Hemoglobin 14.1 g/dl (12.0-16.0); Imm Gran Abs Auto 0.03 X10*3/uL (0.00-0.03); Imm Gran Pct Auto 0.4 % (0.0-0.4); Lymphocytes Percent Auto 23.7 % (20-40); Mean Corpuscular HGB Conc 31.5 g/dl (31.0-35.0); Mean Corpuscular Hemoglobin 25.6 pg (27.0-33.0); Mean Corpuscular Volume 81.3 fL (80.0-98.0); Mean Platelet Volume 9.9 fL (9.4-12.3); Monocytes Absolute Auto 0.5 X10*3/uL (0.1-1.2); Monocytes Percent Auto 5.8 % (2-11); Neutrophils Absolute Auto 5.7 x10*3/uL (2.0-8.3); Neutrophils Percent Auto 68.3 % (45-73); Platelet Count 277 X10*3/uL (160-400); Red Cell Distribution Width 14.4 % (11.0-16.0); White Blood Count 8.3 X10*3/uL (4.8-10.8)
[2023-02-03 08:27] LABS: Estimated Average Glucose 157 mg/dL; Hemoglobin A1c % 7.1 %
[2023-02-03 08:53] LABS: Alanine Aminotransferase 43 U/L (0-31); Albumin Level 4.3 g/dL (3.5-5.0); Alkaline Phosphatase 111 U/L (39-117); Anion Gap 15 (12-20); Aspartate Amino Transferase 33 U/L (5-31); Bilirubin Total 0.9 mg/dL (0.0-1.0); Blood Urea Nitrogen 23 mg/dL (9-16); Calcium 9.9 mg/dL (8.4-10.2); Carbon Dioxide 23 mmol/L (22-29); Chloride 103 mmol/L (96-108); Cholesterol 146 mg/dL; Estimated Glomerular Filt Rate 46; Glucose Fasting 157 mg/dL (60-99); HDL Cholesterol 47 mg/dL; LDL Cholesterol Calculated 78 mg/dl; Potassium 4.3 mmol/L (3.3-5.1); Sodium 137 mmol/L (135-145); Total Protein 8.1 g/dL (6.5-8.0); Triglycerides 107 mg/dL
[2023-02-03 09:10] LABS: TSH reflex Free T4 1.89 uIU/mL (0.32-4.0); Vitamin D 25-OH Total 42.2 ng/mL (>30)
== END 2023-02-03 07:45 | disposition home or self-care (01) ==
LOC: HO.LAB 07:44
PROVIDERS: PCP Internal Medicine; Visit Provider Internal Medicine
DX: I10 Essential (primary) hypertension (principal); E11.9 Type 2 diabetes mellitus without complications; E78.00 Pure hypercholesterolemia, unspecified; E55.9 Vitamin D deficiency, unspecified
CPT/HCPCS: 36415; 80053; 80061; 82306; 83036; 84443; 85025

== ENCOUNTER 2023-02-03 09:03 | Outpatient (AMB) | payer OTHER, SELFPAY ==
--- NOTE | 2023-02-03 09:08 | MHC.OFFWIV ---
Intake Vital Signs 02/03/23 09:10 Height 4 ft 10 in BP 120/76 Blood Pressure Location Rt brachial Position Sitting Pulse 97 Pulse Source Pulse Oximeter Temp 97.8 F Temp Source Temporal Artery Scan Pulse Oximetry (%) 97 Oxygen Delivery Method Room Air Intake Visit Reasons: EP Upper abdominal pain, lump (lobby) Intake Note: pt is here for upper abd pain, states she feels a lump for a few days Patient Tobacco Use Status: Never used Tobacco Allergies No Known Allergies Allergy (Mild, Verified 02/03/23 09:25) NOT APPLICABLE Medication List - Last Reconciled 02/03/23 by Surinder Robledo PA-C atorvastatin 20 mg PO DAILY 90 days blood sugar diagnostic As directed blood sugar diagnostic (FreeStyle Lite Strips) DIRECTED- TEST TWICE A DAY cholecalciferol (vitamin D3) 50 mcg PO DAILY 90 days dicyclomine 20 mg PO TID PRN FreeStyle Raisa 14 Day [place] (flash glucose scanning reader) As directed NS FreeStyle Raisa 14 Day Sensor (flash glucose sensor) As directed NS Humalog KwikPen Insulin (insulin lispro) Inject 5 to 10 units as instructed 3 times a day with meals dosed per sliding scale subcutaneously; 30 days NS insulin glargine (Lantus Solostar U-100 Insulin) 33 units (0.33 mL) subcut BEDTIME 60 days insulin lispro units subcut lancets (FreeStyle Lancets) 28 gauge topical TID lisinopril 5 mg PO DAILY 90 days omeprazole 20 mg PO DAILY ondansetron 4 mg PO Q8H PRN pen needle, diabetic (BD Ultra-Fine [place] Pen Needle) 1 ea subcut QID Do you need a note to return to daycare/school/sports/work: No HPI EP Upper abdominal pain, lump (lobby) HPI Details Patient is a 62-year-old female here today complaining of upper abdominal pain and a palpable lump over last week. She also reports having history of diverticulitis and does admit to recently having some soft stool in lower left abdominal quadrant pain. Was seen in October 2022 for abdominal pain and CT of abdomen at that time did shows some enteritis and was treated as a viral enteritis with dicyclomine and ondansetron. Otherwise denies any vomiting, watery or bloody diarrhea, fevers or chills. Most recent labs done and no leukocytosis noted. Does have slight elevation in her liver enzymes [facility] Medical History Benign essential hypertension Depression Elevated LFTs GERD without esophagitis Obesity (BMI 30-39.9) Pure hypercholesterolemia Type 2 diabetes mellitus without complication, with long-term current use of insulin Vitamin D deficiency Surgical History History of section History of excision of pilonidal cyst History of laparoscopic cholecystectomy History of tubal ligation Family History Father Medical history unknown Mother Medical history unknown Maternal Grandmother S/P CABG x 1 Myocardial infarction Family/Other Renal cell cancer Social History Housing: House Alcohol intake: current Alcohol intake frequency: does not drink Patient Tobacco Use Status: Never used Tobacco Second Hand Smoke Exposure: No service: No Current occupational status: retired Cognitive needs: No Hearing needs: No Vision needs: Yes (reading glasses) Review of Systems Const Denies headache(s) Eyes Denies loss of vision ENT Denies vertigo, Denies dizziness, Denies headache(s) and Denies sore throat Card Denies chest pain, Denies leg edema and Denies lightheadedness Resp Denies cough, Denies hemoptysis and Denies wheezing GI Denies abdominal pain, Denies melena, Denies constipation, Denies diarrhea and Denies vomiting Denies urinary frequency, Denies dysuria and Denies urinary urgency Musc Denies arthralgias, Denies joint swelling, Denies numbness and Denies tingling Neuro Denies Abnormal speech present, Denies behavioral changes, Denies vertigo, Denies dizziness, Denies headache(s), Denies loss of vision, Denies memory loss, Denies numbness and Denies tingling Psych Denies anxiety, Denies behavioral changes, Denies depression, Denies memory loss and Denies panic attacks Tre/Lymph Denies easy bleeding and Denies easy bruising Aller/Immun Denies wheezing Physical Exam Vital Signs: Last Vital Signs Temp 97.8 F 02/03/23 09:10 Pulse 97 02/03/23 09:10 BP 120/76 02/03/23 09:10 Pulse Ox 97 02/03/23 09:10 Oxygen Delivery Method Room Air 02/03/23 09:10 Const General: healthy appearing, no acute distress, alert and awake Nutritional Appearance: well nourished Orientation/consciousness: oriented to person, oriented to place and oriented to time HEENT Ears: TM's normal bilaterally General nose exam: Normal nasal mucous membranes and turbinates present Eyes Conjunctivae: conjunctivae normal Sclerae: sclerae normal Pupils: Equal, round and reactive pupils present Neck Neck: Yes no lymphadenopathy and Yes no JVD Thyroid: Thyroid normal Carotids: no bruits Resp Effort & Inspection: normal respiratory effort and not tachypneic Auscultation: no crackles, no rales, no rhonchi and no wheezes Cardio Rate: regular rate Rhythm: regular rhythm Heart sounds: no murmurs and normal S1 and S2 GI Palpation (GI): Soft to palpation, Tenderness to palpation present (GI) in the LLQ, no hepatomegaly and no splenomegaly Auscultation: normal bowel sounds Abdomen image: 1. PALPABLE LUMP OVER THE EPIGASTRIUM Skin General skin exam: no rashes or lesions noted and dry skin Neuro General: oriented to person, oriented to place and oriented to time Cranial nerves: Yes Equal, round and reactive pupils present Speech: No Abnormal speech present Gait exam (Neuro): Normal gait present Motor exam (neuro): no tremor noted Extrem Right upper extremity: full ROM Left upper extremity: full ROM Right lower extremity: full ROM; no edema Left lower extremity: full ROM; no edema Psych Mental Status: mental status grossly normal Speech and movement: Normal speech and movement present Affect: normal affect Attitude: cooperative Thought process: Normal thought process present Assessment & Plan Assessment & Plan (1) Epigastric lump: Code(s): R19.06 - Epigastric swelling, mass or lump Plan: Palpable epigastric lump, differential diagnosis includes epigastric hernia, muscular strain. CT scan abdomen in August 2022 without evidence of hernia Advised to reach out to GI specialist for possible endoscopy and barium swallow. (2) Diverticulitis: Code(s): K57.92 - Diverticulitis of intestine, part unspecified, without perforation or abscess without bleeding Plan: Patient does have some left lower quadrant abdominal tenderness to palpation. Has a history of diverticulitis. Will treating. Clear for diverticulitis flare due to reports pain and recent episodes of soft stools. Medications: New amoxicillin-pot clavulanate 875-125 mg 1 tab PO BID 7 days 14 tabs 0RF K57.92 - Diverticulitis of intestine, part unspecified, without perforation or abscess without bleeding Coding Level of Care Code Est Pt Level 3 (42675) Diagnoses Epigastric lump R19.06 Diverticulitis K57.92
[2023-02-03 09:10] VITALS: BP 120/76; PULSE 97; TEMP 36.6; O2SAT 97
== END 2023-02-03 10:20 | disposition home or self-care (01) ==
PROVIDERS: PCP Internal Medicine; Visit Provider Physician Assistant
DX: R19.06 Epigastric swelling, mass or lump (principal); K57.92 Diverticulitis of intestine, part unspecified, without perforation or abscess without bleeding
CPT/HCPCS: 99051; 99213

== ENCOUNTER 2023-02-21 10:53 | Outpatient (AMB) | payer OTHER, SELFPAY ==
[2023-02-21 11:06] VITALS: BP 118/70; PULSE 71; O2SAT 97; BMI 33.4
--- NOTE | 2023-02-21 11:06 | MHC.PC.OV ---
Vital Signs 02/21/23 11:06 Height 4 ft 10 in Weight 160 lb BMI 33.4 BP 118/70 Blood Pressure Location Lt brachial Position Sitting Pulse 71 Pulse Source Pulse Oximeter Pulse Oximetry (%) 97 Oxygen Delivery Method Room Air Intake Visit Reasons: DM, hyperlipidemia, HTN Allergies No Known Allergies Allergy (Mild, Verified 02/21/23 11:47) NOT APPLICABLE Medication List - Last Reconciled 02/21/23 by Roman Trinh MD atorvastatin 20 mg PO DAILY 90 days blood sugar diagnostic As directed blood sugar diagnostic (FreeStyle Lite Strips) DIRECTED- TEST TWICE A DAY cholecalciferol (vitamin D3) 50 mcg PO DAILY 90 days dicyclomine 20 mg PO TID PRN FreeStyle Raisa 14 Day [place] (flash glucose scanning reader) As directed NS FreeStyle Raisa 14 Day Sensor (flash glucose sensor) As directed NS Humalog KwikPen Insulin (insulin lispro) Inject 5 to 10 units as instructed 3 times a day with meals dosed per sliding scale subcutaneously; 30 days NS insulin glargine (Lantus Solostar U-100 Insulin) 33 units (0.33 mL) subcut BEDTIME 60 days insulin lispro units subcut lancets (FreeStyle Lancets) 28 gauge topical TID lisinopril 5 mg PO DAILY 90 days omeprazole 20 mg PO DAILY ondansetron 4 mg PO Q8H PRN pen needle, diabetic (BD Ultra-Fine [place] Pen Needle) 1 ea subcut QID Tobacco use date assessed: 11/06/22 Dental Screening Dental Screen Date: 02/21/23 Did you have a dental visit in the last 12 months?: No Did you have a dental problem in the last 6 months where you did not have access to dental care?: No Was dental information given to patient?: Patient has dentist HPI DM, hyperlipidemia, HTN HPI Details Patient comes in today for her follow up visit States that she has been experiencing some recurrent pain over her epigastric area lately Has been feeling a small cyst over the epigastric area recently - states that it feels sore when she applies pressure on it and thinks that the cyst there is what is causing most of her current symptoms Has also noticed that her stomach pain would clear up after she takes some Gas-X at times She denies any nausea/vomiting and states that her bowel movements are regular She denies any headaches or dizziness Denies any chest pains, no SOB Had her follow up labs done a few weeks ago - to discuss her results States that she is also due for her repeat colonoscopy (last done with Dr. Connors in 2018) and would like to get a referral to GI for this [facility] Medical History Benign essential hypertension Depression Elevated LFTs GERD without esophagitis Obesity (BMI 30-39.9) Pure hypercholesterolemia Type 2 diabetes mellitus without complication, with long-term current use of insulin Vitamin D deficiency Surgical History History of section History of excision of pilonidal cyst History of laparoscopic cholecystectomy History of tubal ligation Family History Father Medical history unknown Mother Medical history unknown Maternal Grandmother S/P CABG x 1 Myocardial infarction Family/Other Renal cell cancer Social History Housing: House Alcohol intake: current Alcohol intake frequency: does not drink Patient Tobacco Use Status: Never used Tobacco Second Hand Smoke Exposure: No service: No Current occupational status: retired Cognitive needs: No Hearing needs: No Vision needs: Yes (reading glasses) Questionnaire PHQ-9 Over the last 2 weeks, how often have you been bothered by any of the following problems? 1. Little interest or pleasure in doing things: not at all 2. Feeling down, depressed, or hopeless: not at all 3. Trouble falling or staying asleep, or sleeping too much: not at all 4. Feeling tired or having little energy: not at all 5. Poor appetite or overeating: not at all 6. Feeling bad about yourself - or that you are a failure or have let yourself or your family down: not at all 7. Trouble concentrating on things, such as reading the newspaper or watching television: not at all 8. Moving or speaking so slowly that other people could have noticed. Or the opposite - being so fidgety or restless that you have been moving around a lot more than usual: not at all 9. Thoughts that you would be better off or of hurting yourself in some way: not at all Total score: 0 Depression Screening Interpretation: Negative [id number] - PHQ-9 Billing: Yes Source: Developed by Drs. Daren Rocha, Gelacio Morales and colleagues, with an educational mark from [employer]. Thrive Questionnaire Date Thrive assessed: 11/06/22 AUDIT C Alcohol Use Questionnaire (AUDIT-C) 1. How often do you have a drink containing alcohol?: Never 3. How often do you have six or more drinks on one occasion?: Never Total Score: 0 Score Reviewed/Action Taken: Yes SCOTTY-7 AMB Questionnaire SCOTTY-7 Date SCOTTY - 7 assessed: 11/06/22 Source: Developed by Drs. Daren Rocha, Gelacio Morales and colleagues, with an educational mark from [employer]. Review of Systems Const Denies fatigue, Denies fever(s) and Denies headache(s) ENT Denies dysphagia, Denies dizziness, Denies otalgia, Denies headache(s), Denies odynophagia and Denies sore throat Card Denies chest pain, Denies palpitations and Denies dyspnea Resp Denies cough and Denies dyspnea GI Reports abdominal pain (on and off, over the epigastric area - see HPI), Denies constipation, Denies dysphagia, Denies diarrhea, Denies nausea, Denies odynophagia and Denies vomiting Denies difficulty voiding, Denies nocturia and Denies dysuria Musc Reports arthralgias (over both knees and on the right ankle (medially)) Neuro Denies dizziness and Denies headache(s) Endo Denies fatigue and Denies palpitations Physical exam (Primary Care) Vital Signs: Last Vital Signs Pulse 71 02/21/23 11:06 BP 118/70 02/21/23 11:06 Pulse Ox 97 02/21/23 11:06 Oxygen Delivery Method Room Air 02/21/23 11:06 BMI result Body Mass Index 33.4 Tobacco/Smoking Status: Tobacco use Status Tobacco use date assessed 11/06/22 02/21/23 11:07 Patient Tobacco Use Status Never used Tobacco 02/21/23 11:07 PHQ-9: PHQ-9 Score PHQ-9: Total score 0 02/21/23 11:12 Depression Screening Interpretation: Negative Thrive Assessment: Date of Thrive Assessment Date Thrive assessed 11/06/22 02/21/23 11:07 Const General: no acute distress and alert HENMT Ears: TM's normal bilaterally and EAC's normal Throat: Yes posterior oropharynx normal and Yes tonsils normal (no TP congestion noted) Neck Neck: Yes no lymphadenopathy and Yes supple Resp Auscultation: clear to auscultation bilaterally, no rales and no wheezes Cardio Rate: regular rate Rhythm: regular rhythm Heart sounds: no murmurs GI Palpation (GI): Soft to palpation, Tenderness to palpation present (GI) in the epigastrum (mild, on deep palpation), no guarding, not rigid, no masses and No Rebound tenderness present Auscultation: normal bowel sounds Skin Rashes: no rashes Extrem General: Yes no clubbing, cyanosis or edema Right lower extremity: knee Details: tenderness and normal ROM; no swelling and ankle Details: tenderness Location: of the medial malleolus and normal ROM; no swelling Left lower extremity: knee Details: tenderness and normal ROM; no swelling Results Reviewed Results Reviewed: Laboratory Tests 02/03/23 02/03/23 02/03/23 07:55 07:55 07:55 WBC 8.3 Hgb 14.1 Hct 44.7 Plt Count 277 Sodium 137 Potassium 4.3 Creatinine 1.20 Estimated GFR 46 Fasting Glucose 157 H Hemoglobin A1c % 7.1 Calcium 9.9 AST 33 H ALT 43 H Triglycerides 107 Cholesterol 146 LDL Cholesterol, Calc 78 HDL Cholesterol 47 25-OH Vitamin D Total 42.2 TSH 1.89 Assessment and Plan Assessment & Plan (1) Abdominal pain: Code(s): R10.9 - Unspecified abdominal pain Qualifiers: Abdominal location: epigastric Qualified Code(s): R10.13 - Epigastric pain Plan: Patient is reassured that the cyst that she is feeling over her epigastric area is actually the xiphoid process, which is naturally a cartilagenous extension of her sternum and there is nothing to be concerned about this at present Will send her for an upper GI series for further evaluation of her recent abdominal symptoms (pain) (2) Type 2 diabetes mellitus without complication, with long-term current use of insulin: Code(s): E11.9 - Type 2 diabetes mellitus without complications; 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 Plan: HgbA1c was at 7.1% on her labs done a few weeks ago (was previously at 8.2% a few months ago) - goal is < 7.0% Reinforced diabetic diet Continue Lantus 33 units daily at bedtime and Novolog FlexPen dosed 3 times a day with meals per sliding scale Metformin was stopped last year per patient request as she was experiencing frequent upset stomach with the Rx Patient was also started on Lisinopril 5 mg QD for renoprotection a few months ago - to continue Was previously referred for nutrition counseling and also to endocrinology a few months ago for further evaluation and management but patient has not been seen yet States that she has been attending her 's nutrition / dietitian consults with him over the past few months and feels that she has learned a lot from them already (3) Pure hypercholesterolemia: Code(s): E78.00 - Pure hypercholesterolemia, unspecified Plan: Results of her labs done a few weeks ago reviewed and discussed with patient - lipids have also improved significantly from previous Reinforced low cholesterol diet Continue Atorvastatin 20 mg QD Will recheck labs in 3 months for follow up (4) Elevated LFTs: Code(s): R79.89 - Other specified abnormal findings of blood chemistry Plan: Advised that her LFTs are still slightly elevated on her recent labs - are most likely related to her weight Will continue to monitor her LFTs regularly (5) Benign essential hypertension: Code(s): I10 - Essential (primary) hypertension Plan: Reinforced low sodium diet Continue Lisinopril 5 mg QD - was started on Rx BOTH to help lower her blood pressure and for renoprotection (as she is a diabetic) (6) Vitamin D deficiency: Code(s): E55.9 - Vitamin D deficiency, unspecified Plan: Continue Vitamin D3 2000 units QD (7) GERD without esophagitis: Code(s): K21.9 - Gastro-esophageal reflux disease without esophagitis Plan: Dietary restrictions reinforced Continue Omeprazole 20 mg QD (8) Primary osteoarthritis of knees, bilateral: Code(s): M17.0 - Bilateral primary osteoarthritis of knee Plan: X-rays of the knees done back in 06/2013 revealed (+) OA changes back then, and this may have progressed since Was sent for repeat bilateral knee x-rays a few months ago but patient did not get these done; states that she will get them done if her knee pain gets worse Discussed again option of referring her to orthopedics if her knee pain gets worse and her x-rays show (+) disease progression (9) Right ankle pain: Code(s): M25.571 - Pain in right ankle and joints of right foot Qualifiers: Chronicity: unspecified Qualified Code(s): M25.571 - Pain in right ankle and joints of right foot Plan: Advised again that her ankle symptoms are suggestive of arthritis - was sent for right ankle x-rays for further evaluation a few months ago but patient also did not get these done Was also referred to podiatry a few months ago but she has not gotten this scheduled yet (10) Memory impairment: Comment: mother and maternal grandfather were both diagnosed with dementia in their later years Code(s): R41.3 - Other amnesia Plan: Was referred to and seen by neurology a couple of months ago - was labeled as MCI and sent for some additional labs Was also started on Sertraline 25 mg QD (11) Depression: Code(s): F32.9 - Major depressive disorder, single episode, unspecified Qualifiers: Depression Type: major depressive disorder Major depression recurrence: recurrent Active/Remission status: currently active Major depression episode severity: unspecified Qualified Code(s): F33.9 - Major depressive disorder, recurrent, unspecified Plan: Stopped taking her Citalopram 10 mg QD a few months ago and states that she has not felt any worse or different since she stopped Rx Was started on Sertraline 25 mg QD by neurology a couple of months ago but patient states that she has not started taking this yet (12) Obesity (BMI 30-39.9): Code(s): E66.9 - Obesity, unspecified Plan: Reinforced diet/exercise as tolerated/lose weight (13) Colon cancer screening: Code(s): Z12.11 - Encounter for screening for malignant neoplasm of colon Plan: Colonoscopy was last done in [address] Connors and recommended repeat in 5 years Per request, will refer to Dr. Mcgee for repeat colonoscopy Plan Follow up in 3 months Orders: Orders [place] upper GI series Today R10.9 - Unspecified abdominal pain Comprehensive [place]. Panel Fast 3 Months E78.00 - Pure hypercholesterolemia, unspecified Hemoglobin A1c 3 Months E11.9 - Type 2 diabetes mellitus without complications Lipid Panel 3 Months E78.00 - Pure hypercholesterolemia, unspecified TSH reflex Free T4 3 Months E78.00 - Pure hypercholesterolemia, unspecified Vitamin D 25-OH Total 3 Months E55.9 - Vitamin D deficiency, unspecified Microalbumin, Random (w Creat) 3 Months E11.9 - Type 2 diabetes mellitus without complications Complete Blood Count Auto Diff 3 Months I10 - Essential (primary) hypertension UA CC w/rflx Micro + Cult 3 Months R30.0 - Dysuria Referrals Gastroenterology Referral Z12.11 - Encounter for screening for malignant neoplasm of colon Medications: Changed From insulin lispro 5 units (0.05 mL) subcut TID 30 days 15 mL 3RF E11.9 - Type 2 diabetes mellitus without complications, Z79.4 - senior living (current) use of insulin To Humalog KwikPen Insulin (insulin lispro) Inject 5 to 10 units as instructed 3 times a day with meals dosed per sliding scale subcutaneously; 30 days 15 mL 3RF NS E11.9 - Type 2 diabetes mellitus without complications, Z79.4 - senior living (current) use of insulin Coding Level of Care Code Est Pt Level 4 (90206) Diagnoses Abdominal pain R10.13 Abdominal location: epigastric Type 2 diabetes mellitus without complication, with long-term current use of insulin E11.9; Z79.4 Pure hypercholesterolemia E78.00 Elevated LFTs R79.89 Benign essential hypertension I10 Vitamin D deficiency E55.9 GERD without esophagitis K21.9 Primary osteoarthritis of knees, bilateral M17.0 Right ankle pain M25.571 Chronicity: unspecified Memory impairment R41.3 Depression F33.9 Depression Type: major depressive disorder Major depression recurrence: recurrent Active/Remission status: currently active Major depression episode severity: unspecified Obesity (BMI 30-39.9) E66.9 Colon cancer screening Z12.11
== END 2023-02-21 12:08 | disposition home or self-care (01) ==
PROVIDERS: PCP Internal Medicine; Visit Provider Internal Medicine
DX: E11.9 Type 2 diabetes mellitus without complications (principal); Z79.4 Long term (current) use of insulin; F33.9 Major depressive disorder, recurrent, unspecified; I10 Essential (primary) hypertension; E55.9 Vitamin D deficiency, unspecified; R10.13 Epigastric pain; E78.00 Pure hypercholesterolemia, unspecified; R79.89 Other specified abnormal findings of blood chemistry; K21.9 Gastro-esophageal reflux disease without esophagitis; M17.0 Bilateral primary osteoarthritis of knee; M25.571 Pain in right ankle and joints of right foot; R41.3 Other amnesia
CPT/HCPCS: 99214

== ENCOUNTER 2023-08-02 11:08 | Outpatient (AMB) | payer OTHER, SELFPAY ==
[2023-08-02 11:11] VITALS: BP 124/80; PULSE 75; O2SAT 98; BMI 34.8
--- NOTE | 2023-08-02 11:11 | A.OFFPC_ITS ---
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 Required: No Accompanied by: Self / Same As Patient Allergies No Known Allergies Allergy (Mild, Verified 08/02/23 12:06) NOT APPLICABLE Medication List - Last Reconciled 08/02/23 by Roman Trinh MD atorvastatin 20 mg PO DAILY 90 days blood sugar diagnostic As directed blood sugar diagnostic (FreeStyle Lite Strips) DIRECTED- TEST TWICE A DAY cholecalciferol (vitamin D3) 50 mcg PO DAILY 90 days citalopram 10 mg PO DAILY 90 days dicyclomine 20 mg PO TID PRN FreeStyle Raisa 14 Day [place] (flash glucose scanning reader) As directed NS FreeStyle Raisa 14 Day Sensor (flash glucose sensor) As directed NS Humalog KwikPen Insulin (insulin lispro) Inject 5 to 10 units as instructed 3 times a day with meals dosed per sliding scale subcutaneously; 30 days NS insulin glargine (Lantus Solostar U-100 Insulin) 33 units (0.33 mL) subcut BEDTIME 60 days insulin lispro units subcut lancets (FreeStyle Lancets) 28 gauge topical TID lisinopril 5 mg PO DAILY 90 days omeprazole 20 mg PO DAILY ondansetron 4 mg PO Q8H PRN pen needle, diabetic (BD Ultra-Fine [place] Pen Needle) 1 ea subcut QID Tobacco use date assessed: 08/02/23 Dental Screening Dental Screen Date: 08/02/23 Did you have a dental visit in the last 12 months?: No Did you have a dental problem in the last 6 months where you did not have access to dental care?: No Was dental information given to patient?: Patient has dentist HPI Lump on Clavical HPI Details Patient comes in today for her follow up visit States that she has a slightly swollen and painful lump over the front of her right clavicle that she states appeared asked her what she felt was a bout of violent coughing fits when she came down with COVID last month States that the lump feels more painful when she is moving her right arm Recalls that she was sick for a while last month with COVID and that everyone in her family came down with COVID as well about a month ago but everyone is doing much better at present although she still has some recurrent cough and would like to get something to help with her cough See Ms. her follow-up appointment a couple of months ago and has not had any follow-up labs done recently States that other than the painful swelling over her right clavicle, she feels okay She denies any headaches or dizziness Denies any chest pains, no shortness of breath No nausea / vomiting, no abdominal pain No change in bowel habits noted [facility] Medical History Benign essential hypertension Vitamin D deficiency Obesity (BMI 30-39.9) Depression Elevated LFTs GERD without esophagitis Pure hypercholesterolemia Type 2 diabetes mellitus without complication, with long-term current use of insulin Surgical History History of tubal ligation History of section History of excision of pilonidal cyst History of laparoscopic cholecystectomy Family History Father Medical history unknown Mother Medical history unknown Maternal Grandmother S/P CABG x 1 Myocardial infarction Family/Other Renal cell cancer Social History Housing: House Alcohol intake: current Alcohol intake frequency: does not drink Patient Tobacco Use Status: Never used Tobacco Second Hand Smoke Exposure: No service: No Current occupational status: retired Cognitive needs: No Hearing needs: No Vision needs: Yes (reading glasses) Questionnaire PHQ-9 Over the last 2 weeks, how often have you been bothered by any of the following problems? 1. Little interest or pleasure in doing things: not at all 2. Feeling down, depressed, or hopeless: not at all 3. Trouble falling or staying asleep, or sleeping too much: not at all 4. Feeling tired or having little energy: not at all 5. Poor appetite or overeating: not at all 6. Feeling bad about yourself - or that you are a failure or have let yourself or your family down: not at all 7. Trouble concentrating on things, such as reading the newspaper or watching television: not at all 8. Moving or speaking so slowly that other people could have noticed. Or the opposite - being so fidgety or restless that you have been moving around a lot more than usual: not at all 9. Thoughts that you would be better off or of hurting yourself in some way: not at all Total score: 0 Depression Screening Interpretation: Negative Depression Screening Done: Yes [id number] - PHQ-9 Billing: Yes Source: Developed by Drs. Daren Rocha, Carolin Stack, Gelacio Henry and colleagues, with an educational mark from [employer]. Thrive Questionnaire Date Thrive assessed: 08/02/23 I am a: Patient What is your living situation today?: I have a steady place to live Within the past 12 months, did the food you bought not last and you didn't have the money to get more?: Never true Within the past 12 months, did you worry whether your food would run out before you got money to buy more?: Never true Do you have trouble paying for medicines?: No Do you have trouble getting transportation to medical appointments?: No Do you have trouble paying your heating and electricity bill?: No Do you have trouble taking care of your child, family member or friend?: No Do you have trouble with day-to-day activities such as bathing, preparing meals, shopping, managing finances, etc.?: No Are you currently unemployed and looking for a job?: No Are you interested in more education?: No Please select the resources that you would like help with: None Currently or been in a relationship where the following occur: no concerns reported AUDIT C Alcohol Use Questionnaire (AUDIT-C) 1. How often do you have a drink containing alcohol?: Never 3. How often do you have six or more drinks on one occasion?: Never Total Score: 0 Score Reviewed/Action Taken: Yes SCOTTY-7 AMB Questionnaire SCOTTY-7 Date SCOTTY - 7 assessed: 08/02/23 Feeling nervous, anxious, or on edge: 0 = Not at all Not being able to stop or control worryin = Not at all Worrying too much about different things: 0 = Not at all Trouble relaxin = Not at all Being so restless that it is hard to sit still: 0 = Not at all Becoming easily annoyed or irritable: 0 = Not at all Feeling afraid as if something awful might happen: 0 = Not at all Total SCOTTY-7 score (0-4 normal; 5-9 mild; 10-14 moderate; 15-21 severe): 0 Source: Developed by Drs. Daren Rocha, Carolin Stack, Gelacio Henry and colleagues, with an educational mark from [employer]. Review of Systems Const Denies fatigue, Denies fever(s) and Denies headache(s) ENT Denies dysphagia, Denies dizziness, Denies otalgia, Denies headache(s), Denies odynophagia and Denies sore throat Card Denies chest pain, Denies palpitations and Denies dyspnea Resp Reports cough (on and off, mostly nonproductive), Denies dyspnea and Denies wheezing GI Denies abdominal pain, Denies constipation, Denies dysphagia, Denies diarrhea, Denies nausea, Denies odynophagia and Denies vomiting Denies difficulty voiding, Denies nocturia, Denies dysuria and Denies urinary urgency Musc Details: (+) painful swelling over the front of her right clavicle Reports arthralgias (over both knees, on and off) Skin/Breast Denies rash Neuro Denies dizziness and Denies headache(s) Endo Denies fatigue and Denies palpitations Aller/Immun Denies wheezing Physical exam (Primary Care) Vital Signs: Last Vital Signs Pulse 75 08/02/23 11:11 BP 124/80 08/02/23 11:11 Pulse Ox 98 08/02/23 11:11 Oxygen Delivery Method Room Air 08/02/23 11:11 BMI result Body Mass Index 34.8 Tobacco/Smoking Status: Tobacco use Status Tobacco use date assessed 08/02/23 08/02/23 11:13 Patient Tobacco Use Status Never used Tobacco 08/02/23 11:13 PHQ-9: PHQ-9 Score PHQ-9: Total score 0 08/02/23 12:09 Depression Screening Interpretation: Negative Thrive Assessment: Date of Thrive Assessment Date Thrive assessed 08/02/23 08/02/23 11:13 Currently or been in a relationship where the following occur: no concerns reported Const General: no acute distress and alert HENMT Ears: TM's normal bilaterally and EAC's normal Throat: Yes posterior oropharynx normal and Yes tonsils normal (no TP congestion noted) Neck Neck: Yes no lymphadenopathy and Yes supple Chest Other: (+) increased prominence/swelling over the right clavicle along the st ernoclavicular junction; area is slightly tender on palpation Resp Auscultation: clear to auscultation bilaterally, no rales and no wheezes Cardio Rate: regular rate Rhythm: regular rhythm Heart sounds: no murmurs GI Palpation (GI): Soft to palpation and nontender Auscultation: normal bowel sounds General: Yes no CVA tenderness Back/Spine/Pelvis Back: no CVA tenderness Skin Rashes: no rashes Extrem General: Yes no clubbing, cyanosis or edema Right lower extremity: knee Details: tenderness and normal ROM; no swelling Left lower extremity: knee Details: tenderness and normal ROM; no swelling Results AMB Hemoglobin A1c AMB Hemoglobin A1c 7.9 % Last Edit by Wilner Urbano on 08/02/23 11:25 Results Reviewed Results Reviewed: Laboratory Last Values Hgb A1c (Clinic) 7.9 % (4.0-6.0) H 08/02/23 11:23 Assessment and Plan Assessment & Plan (1) Type 2 diabetes mellitus without complication, with long-term current use of insulin: Code(s): E11.9 - Type 2 diabetes mellitus without complications; Z79.4 - watermelon inspector (curre nt) use of insulin Plan: In-office HgbA1c done today is at 7.9% (HgbA1c was at 7.1% a few months ago) - goal is < 7.0% Reinforced diabetic diet Continue Lantus 33 units daily at bedtime and Novolog FlexPen dosed 3 times a day with meals per sliding scale for now Metformin was stopped last year per patient request when she was experiencing frequent upset stomach with the Rx Continue Lisinopril 5 mg QD - she was also started on this for renoprotection a few months ago Was previously referred for nutrition counseling and also to endocrinology a few months ago for further evaluation and management but patient has not been seen yet States that she has been attending her 's nutrition / dietitian consults with him over the past few months and feels that she has learned a lot from them (2) Pure hypercholesterolemia: Code(s): E78.00 - Pure hypercholesterolemia, unspecified Plan: She has not had any follow-up labs done recently since she missed her last appointment a couple of months ago Reinforced low cholesterol diet Continue Atorvastatin 20 mg QD Will recheck her labs and fasting lipids in 3 months for follow up (3) Elevated LFTs: Code(s): R79.89 - Other specified abnormal findings of blood chemistry Plan: Her LFTs were still slightly elevated on her recent labs - are most likely related to her weight Will continue to monitor her LFTs regularly (4) Benign essential hypertension: Code(s): I10 - Essential (primary) hypertension Plan: Reinforced low sodium diet Continue Lisinopril 5 mg QD - was started on Rx BOTH to help lower her blood pressure and for renoprotection (as she is a diabetic) (5) Vitamin D deficiency: Code(s): E55.9 - Vitamin D deficiency, unspecified Plan: Continue Vitamin D3 2000 units QD (6) GERD without esophagitis: Code(s): K21.9 - Gastro-esophageal reflux disease without esophagitis Plan: Dietary restrictions reinforced Continue Omeprazole 20 mg QD (7) Primary osteoarthritis of knees, bilateral: Code(s): M17.0 - Bilateral primary osteoarthritis of knee Plan: X-rays of the knees done back in 06/2013 revealed (+) OA changes Was sent for repeat bilateral knee x-rays a few months ago but patient did not get these done; states that she will get them done if her knee pain gets worse Discussed again option of referring her to orthopedics if her knee pain gets worse and her x-rays show (+) disease progression (8) Swelling of clavicular region: Code(s): M79.89 - Other specified soft tissue disorders Plan: Will send patient for x-rays of the right clavicle for further evaluation (9) Recurrent cough: Code(s): R05.8 - Other specified cough Plan: Is likely a residual of her recent bout with COVID last month Will start her on Benzonatate 200 mg TID PRN, per request, for her recurrent coughing spells (10) Memory impairment: Comment: mother and maternal grandfather were both diagnosed with dementia in their later years Code(s): R41.3 - Other amnesia Plan: Was referred to and seen by neurology a couple of months ago - was labeled as MCI and sent for some additional labs Was also started on Sertraline 25 mg QD (11) Depression: Code(s): F32.9 - Major depressive disorder, single episode, unspecified Qualifiers: Active/Remission status: currently active Depression Type: major depressive disorder Major depression episode severity: unspecified Major depression recurrence: recurrent Qualified Code(s): F33.9 - Major depressive disorder, recurrent, unspecified Plan: Stopped taking her Citalopram 10 mg QD a few months ago and states that she has not felt any worse or different since she stopped Rx Was started on Sertraline 25 mg QD by neurology a couple of months ago but patient states that she has not started taking this yet (12) Obesity (BMI 30-39.9): Code(s): E66.9 - Obesity, unspecified Plan: Reinforced diet/exercise as tolerated/lose weight Plan Follow up in 3 months Orders: Orders AMB Hemoglobin A1c 08/02/23 Z13.9 - Encounter for screening, unspecified Complete Blood Count Auto Diff 3 Months I10 - Essential (primary) hypertension Lipid Panel 3 Months E78.00 - Pure hypercholesterolemia, unspecified Comprehensive [place]. Panel Fast 3 Months E78.00 - Pure hypercholesterolemia, unspecified Hemoglobin A1c 3 Months E11.9 - Type 2 diabetes mellitus without complications Microalbumin, Random (w Creat) 3 Months E11.9 - Type 2 diabetes mellitus without complications TSH reflex Free T4 3 Months E78.00 - Pure hypercholesterolemia, unspecified XR clavicle RT 08/02/23 M25.519 - Pain in unspecified shoulder, M79.89 - Other specified soft tissue disorders UA CC w/rflx Micro + Cult 3 Months R30.0 - Dysuria Vitamin D 25-OH Total 3 Months E55.9 - Vitamin D deficiency, unspecified Medications: New benzonatate 200 mg PO BID-TID PRN 30 caps 1RF cough Coding Level of Care Code Est Pt Level 4 (16977) Diagnoses Type 2 diabetes mellitus without complication, with long-term current use of insulin E11.9; Z79.4 Pure hypercholesterolemia E78.00 Elevated LFTs R79.89 Benign essential hypertension I10 Vitamin D deficiency E55.9 GERD without esophagitis K21.9 Primary osteoarthritis of knees, bilateral M17.0 Swelling of clavicular region M79.89 Recurrent cough R05.8 Memory impairment R41.3 Episode of recurrent major depressive disorder, unspecified depression episode severity F33.9 Active/Remission status: currently active Depression Type: major depressive disorder Major depression episode severity: unspecified Major depression recurrence: recurrent Obesity (BMI 30-39.9) E66.9
== END 2023-08-02 12:16 | disposition home or self-care (01) ==
PROVIDERS: PCP Internal Medicine; Visit Provider Internal Medicine
DX: E11.9 Type 2 diabetes mellitus without complications (principal); E78.00 Pure hypercholesterolemia, unspecified; R74.01 Elevation of levels of liver transaminase levels; E55.9 Vitamin D deficiency, unspecified
CPT/HCPCS: 83036; 99214

== ENCOUNTER 2023-08-02 12:25 | Outpatient (REF) | payer OTHER, SELFPAY ==
--- NOTE | ~2023-08-02 | XR_ITS ---
EXAMINATION: XR CLAVICLE, RIGHT CLINICAL INFORMATION: Other specified soft tissue disorder. COMPARISON: Right shoulder 01/31/2021. TECHNIQUE: 2 views of the right clavicle. FINDINGS: The clavicle is intact. The bones and soft tissues are normal. No fracture. Acromioclavicular joint alignment is anatomic, but with [id number] degenerative changes. XR/XR clavicle RT IMPRESSION: Acromioclavicular degenerative changes. Otherwise unremarkable study.
== END 2023-08-02 12:26 | disposition home or self-care (01) ==
LOC: HO.XRAY 12:25
PROVIDERS: PCP Internal Medicine; Visit Provider Internal Medicine
DX: M79.89 Other specified soft tissue disorders (principal); M25.511 Pain in right shoulder
CPT/HCPCS: 73000

== ENCOUNTER 2023-11-13 07:47 | Outpatient (REF) | payer OTHER, SELFPAY ==
[2023-11-13 08:08] LABS: MANUAL DIFF FLAG NO
[2023-11-13 08:41] LABS: Basophils Percent Auto 0.3 % (0-2); Eosinophils Absolute Auto 0.1 X10*3/uL (0.0-0.4); Eosinophils Percent Auto 1.4 % (0-4); Hematocrit 43.2 % (37.0-47.0); Hemoglobin 13.5 g/dl (12.0-16.0); Lymphocytes Absolute Auto 1.5 X10*3/uL (1.2-4.9); Lymphocytes Percent Auto 24.6 % (20-40); Mean Corpuscular HGB Conc 31.3 g/dl (31.0-35.0); Mean Corpuscular Hemoglobin 25.3 pg (27.0-33.0); Mean Corpuscular Volume 81.1 fL (80.0-98.0); Mean Platelet Volume 9.4 fL (9.4-12.3); Monocytes Absolute Auto 0.4 X10*3/uL (0.1-1.2); Monocytes Percent Auto 6.4 % (2-11); Neutrophils Absolute Auto 4.2 x10*3/uL (2.0-8.3); Neutrophils Percent Auto 67.3 % (45-73); Platelet Count 264 X10*3/uL (160-400); Red Blood Count 5.33 X10*6/uL (4.20-5.50); Red Cell Distribution Width 14.5 % (11.0-16.0); White Blood Count 6.2 X10*3/uL (4.8-10.8)
[2023-11-13 08:44] LABS: Appearance Urine Cloudy; Color Urine Yellow; Glucose Urine UA Negative (Negative); Leukocyte Esterase Urine Negative (Negative); Nitrite Urine Negative (Negative); Specific Gravity - Urine 1.025 (1.005-1.025); Urine Blood Negative (Negative); Urine Ketones Negative (Negative); Urine Protein Trace mg/dL (Neg-Trace)
[2023-11-13 08:59] LABS: Estimated Average Glucose 174 mg/dL; Hemoglobin A1c % 7.7 % (<6.0)
[2023-11-13 09:03] LABS: Creatinine Urine 160.15 mg/dL; Microalbum/Creatinine Ratio Ur 39.9 ug/mg cr (<30)
[2023-11-13 09:14] LABS: Alanine Aminotransferase 39 U/L (0-31); Albumin Level 4.3 g/dL (3.5-5.0); Alkaline Phosphatase 104 U/L (39-117); Anion Gap 11 (12-20); Aspartate Amino Transferase 26 U/L (5-31); Bilirubin Total 0.5 mg/dL (0.0-1.0); Blood Urea Nitrogen 21 mg/dL (9-16); Calcium 10.3 mg/dL (8.4-10.2); Carbon Dioxide 29 mmol/L (22-29); Chloride 105 mmol/L (96-108); Cholesterol 172 mg/dL (<200); Estimated Glomerular Filt Rate 51; Glucose Fasting 106 mg/dL (60-99); HDL Cholesterol 52 mg/dL (>40); LDL Cholesterol Calculated 105 mg/dL (<100); Potassium 4.3 mmol/L (3.3-5.1); Sodium 141 mmol/L (135-145); Total Protein 8.2 g/dL (6.5-8.0); Triglycerides 77 mg/dL (<150)
[2023-11-13 09:29] LABS: TSH reflex Free T4 3.36 uIU/mL (0.32-4.0); Vitamin D 25-OH Total 36.3 ng/mL (>30)
== END 2023-11-13 07:48 | disposition home or self-care (01) ==
LOC: HO.LAB 07:47
PROVIDERS: PCP Internal Medicine; Visit Provider Internal Medicine
DX: R30.0 Dysuria (principal); E11.9 Type 2 diabetes mellitus without complications; I10 Essential (primary) hypertension; E78.00 Pure hypercholesterolemia, unspecified; E55.9 Vitamin D deficiency, unspecified
CPT/HCPCS: 36415; 80053; 80061; 81003; 82043; 82306; 82570; 83036; 84443; 85025

== ENCOUNTER 2023-11-14 10:58 | Outpatient (AMB) | payer OTHER, SELFPAY ==
--- NOTE | 2023-11-14 11:05 | MHC.PC.OV ---
Vital Signs 11/14/23 11:06 Height 4 ft 10 in Weight 164 lb 4 oz BMI 34.3 BP 126/62 Blood Pressure Location Lt brachial Position Sitting Pulse 64 Pulse Source Pulse Oximeter Pulse Oximetry (%) 99 Oxygen Delivery Method Room Air Intake Visit Reasons: DM, hyperlipidemia Habilitation Worker Required: No Accompanied by: Spouse Allergies No Known Allergies Allergy (Mild, Verified 11/14/23 11:37) NOT APPLICABLE Medication List - Last Reconciled 11/14/23 by Roman Trinh MD atorvastatin 20 mg PO DAILY 90 days blood sugar diagnostic As directed blood sugar diagnostic (FreeStyle Lite Strips) DIRECTED- TEST TWICE A DAY cholecalciferol (vitamin D3) 50 mcg PO DAILY 90 days citalopram 10 mg PO DAILY 90 days dicyclomine 20 mg PO TID PRN FreeStyle Raisa 14 Day [place] (flash glucose scanning reader) As directed NS FreeStyle Raisa 14 Day Sensor (flash glucose sensor) As directed NS Humalog KwikPen Insulin (insulin lispro) Inject 5 to 10 units as instructed 3 times a day with meals dosed per sliding scale subcutaneously; 30 days NS insulin glargine (Lantus Solostar U-100 Insulin) 33 units (0.33 mL) subcut BEDTIME 60 days insulin lispro units subcut lancets (FreeStyle Lancets) 28 gauge topical TID lisinopril 5 mg PO DAILY 90 days omeprazole 20 mg PO DAILY ondansetron 4 mg PO Q8H PRN pen needle, diabetic (BD Ultra-Fine [place] Pen Needle) 1 ea subcut QID Tobacco use date assessed: 08/02/23 Dental Screening Dental Screen Date: 08/02/23 HPI DM, hyperlipidemia HPI Details Patient comes in today for her follow up visit States that she feels okay She denies any headaches or dizziness Denies any chest pains, no SOB No nausea/vomiting, no abdominal pain No change in bowel habits noted Had her follow up labs done yesterday - to discuss her results [facility] Medical History Benign essential hypertension Vitamin D deficiency Obesity (BMI 30-39.9) Depression Elevated LFTs GERD without esophagitis Pure hypercholesterolemia Type 2 diabetes mellitus without complication, with long-term current use of insulin Surgical History History of tubal ligation History of section History of excision of pilonidal cyst History of laparoscopic cholecystectomy Family History Father Medical history unknown Mother Medical history unknown Maternal Grandmother S/P CABG x 1 Myocardial infarction Family/Other Renal cell cancer Social History Housing: House Alcohol intake: current Alcohol intake frequency: does not drink Patient Tobacco Use Status: Never used Tobacco Second Hand Smoke Exposure: No service: No Current occupational status: retired Cognitive needs: No Hearing needs: No Vision needs: Yes (reading glasses) Questionnaire Thrive Questionnaire Date Thrive assessed: 08/02/23 SCOTTY-7 AMB Questionnaire SCOTTY-7 Date SCOTTY - 7 assessed: 08/02/23 Source: Developed by Drs. Daren Rocha, Carolin Stack, Gelacio Henry and colleagues, with an educational mark from [employer]. Review of Systems Const Denies fatigue, Denies fever(s) and Denies headache(s) ENT Denies dysphagia, Denies dizziness, Denies otalgia, Denies headache(s), Denies neck pain, Denies odynophagia and Denies sore throat Card Denies chest pain, Denies palpitations and Denies dyspnea Resp Denies chest congestion, Denies cough, Denies dyspnea and Denies wheezing GI Denies abdominal pain, Denies constipation, Denies dysphagia, Denies diarrhea, Denies nausea, Denies odynophagia and Denies vomiting Denies difficulty voiding, Denies nocturia, Denies dysuria and Denies urinary urgency Musc Denies back pain, Reports arthralgias (over both knees, on and off) and Denies neck pain Skin/Breast Denies rash Neuro Denies dizziness and Denies headache(s) Endo Denies fatigue and Denies palpitations Aller/Immun Denies wheezing Physical exam (Primary Care) Vital Signs: Last Vital Signs Pulse 64 11/14/23 11:06 BP 126/62 11/14/23 11:06 Pulse Ox 99 11/14/23 11:06 Oxygen Delivery Method Room Air 11/14/23 11:06 BMI result Body Mass Index 34.3 Tobacco/Smoking Status: Tobacco use Status Tobacco use date assessed 08/02/23 11/14/23 11:07 Patient Tobacco Use Status Never used Tobacco 11/14/23 11:07 Thrive Assessment: Date of Thrive Assessment Date Thrive assessed 08/02/23 11/14/23 11:07 Const General: no acute distress and alert HENMT Ears: TM's normal bilaterally and EAC's normal Throat: Yes posterior oropharynx normal and Yes tonsils normal (no TP congestion noted) Neck Neck: Yes no lymphadenopathy and Yes supple Resp Auscultation: clear to auscultation bilaterally, no rales and no wheezes Cardio Rate: regular rate Rhythm: regular rhythm Heart sounds: no murmurs GI Palpation (GI): Soft to palpation and nontender Auscultation: normal bowel sounds General: Yes no CVA tenderness Back/Spine/Pelvis Back: no CVA tenderness Skin Rashes: no rashes Extrem General: Yes no clubbing, cyanosis or edema Right lower extremity: knee Details: tenderness and normal ROM; no swelling Left lower extremity: knee Details: tenderness and normal ROM; no swelling Results Reviewed Results Reviewed: Laboratory Tests 11/13/23 11/13/23 08:05 08:07 WBC 6.2 Hgb 13.5 Hct 43.2 Plt Count 264 Sodium 141 Potassium 4.3 Creatinine 1.09 Estimated GFR 51 Fasting Glucose 106 H Hemoglobin A1c % 7.7 H Calcium 10.3 H AST 26 ALT 39 H Triglycerides 77 Cholesterol 172 LDL Cholesterol, Calc 105 H HDL Cholesterol 52 25-OH Vitamin D Total 36.3 TSH 3.36 Ur Specific [place] 1.025 Urine Protein Trace Urine Glucose (UA) Negative Urine Blood Negative Urine Nitrite Negative Ur Leukocyte Esterase Negative Microalb/Creat Ratio 39.9 H Assessment and Plan Assessment & Plan (1) Type 2 diabetes mellitus without complication, with long-term current use of insulin: Code(s): E11.9 - Type 2 diabetes mellitus without complications; Z79.4 - longterm (current) use of insulin Plan: Her HgbA1c was at 7.7% on her labs done yesterday (in-office HgbA1c was at 7.9% a few months ago) - goal is at least < 7.0% Reinforced diabetic diet Continue Lantus 33 units daily at bedtime and Novolog FlexPen dosed 3 times a day with meals per sliding scale for now Metformin was stopped last year per patient request when she was experiencing frequent upset stomach with the Rx Continue Lisinopril 5 mg QD - she was started on this for renoprotection last year Was previously referred for nutrition counseling and also to endocrinology a few months ago for further evaluation and management but patient has not been seen yet States that she has been attending her 's nutrition / dietitian consults with him over the past few months and feels that she has learned a lot from them States that she is up-to-date on her annual eye exam and foot exam (2) Pure hypercholesterolemia: Code(s): E78.00 - Pure hypercholesterolemia, unspecified Plan: Results of her labs done yesterday reviewed and discussed with patient Reinforced low cholesterol diet Continue Atorvastatin 20 mg QD Will recheck her labs and fasting lipids in 3 months for follow up (3) Elevated LFTs: Code(s): R79.89 - Other specified abnormal findings of blood chemistry Plan: Her ALT was still slightly elevated on her recent labs; AST and Alkaline phosphatase levels were normal - is most likely related to her weight Will continue to monitor her LFTs regularly (4) Benign essential hypertension: Code(s): I10 - Essential (primary) hypertension Plan: Reinforced low sodium diet Continue Lisinopril 5 mg QD - was started on Rx BOTH to help lower her blood pressure and for renoprotection (as she is a diabetic) (5) Vitamin D deficiency: Code(s): E55.9 - Vitamin D deficiency, unspecified Plan: Continue Vitamin D3 2000 units QD (6) GERD without esophagitis: Code(s): K21.9 - Gastro-esophageal reflux disease without esophagitis Plan: Dietary restrictions reinforced Continue Omeprazole 20 mg QD (7) Primary osteoarthritis of knees, bilateral: Code(s): M17.0 - Bilateral primary osteoarthritis of knee Plan: X-rays of the knees done back in 06/2013 revealed (+) OA changes Was sent for repeat bilateral knee x-rays a few months ago but patient did not get these done; states that she will get them done if her knee pain gets worse Discussed again option of referring her to orthopedics if her knee pain gets worse and her x-rays show (+) disease progression (8) Memory impairment: Comment: mother and maternal grandfather were both diagnosed with dementia in their later years Code(s): R41.3 - Other amnesia Plan: Was referred to and seen by neurology last year - was diagnosed as MCI and sent for some additional labs, which came out okay She was started on Sertraline 25 mg QD back then but did not start it; is currently on Citalopram 10 mg QD instead (9) Depression: Code(s): F32.9 - Major depressive disorder, single episode, unspecified Qualifiers: Depression Type: major depressive disorder Major depression recurrence: recurrent Active/Remission status: currently active Major depression episode severity: unspecified Qualified Code(s): F33.9 - Major depressive disorder, recurrent, unspecified Plan: She was started on Sertraline 25 mg QD by neurology a couple of months ago but patient states that she has not started taking this yet and she instead went back on her previous Rx of Citalopram 10 mg QD and feels that she is doing well on this (10) Obesity (BMI 30-39.9): Code(s): E66.9 - Obesity, unspecified Plan: Reinforced diet/exercise as tolerated/lose weight Plan To return in 3 months for her annual physical examination Orders: Orders Complete Blood Count Auto Diff 3 Months D64.9 - Anemia, unspecified Comprehensive [place]. Panel Fast 3 Months E78.00 - Pure hypercholesterolemia, unspecified Microalbumin, Random (w Creat) 3 Months E11.9 - Type 2 diabetes mellitus without complications Hemoglobin A1c 3 Months E11.9 - Type 2 diabetes mellitus without complications Lipid Panel 3 Months E78.00 - Pure hypercholesterolemia, unspecified UA CC w/rflx Micro + Cult 3 Months R30.0 - Dysuria TSH reflex Free T4 3 Months E78.00 - Pure hypercholesterolemia, unspecified Vitamin B12 and Folate 3 Months E53.8 - Deficiency of other specified B group vitamins Vitamin D 25-OH Total 3 Months E55.9 - Vitamin D deficiency, unspecified Coding Level of Care Code Est Pt Level 4 (61688) Diagnoses Type 2 diabetes mellitus without complication, with long-term current use of insulin E11.9; Z79.4 Pure hypercholesterolemia E78.00 Elevated LFTs R79.89 Benign essential hypertension I10 Vitamin D deficiency E55.9 GERD without esophagitis K21.9 Primary osteoarthritis of knees, bilateral M17.0 Memory impairment R41.3 Episode of recurrent major depressive disorder, unspecified depression episode severity F33.9 Depression Type: major depressive disorder Major depression recurrence: recurrent Active/Remission status: currently active Major depression episode severity: unspecified Obesity (BMI 30-39.9) E66.9
[2023-11-14 11:06] VITALS: BP 126/62; PULSE 64; O2SAT 99; BMI 34.3
== END 2023-11-14 12:13 | disposition home or self-care (01) ==
PROVIDERS: PCP Internal Medicine; Visit Provider Internal Medicine
DX: E11.9 Type 2 diabetes mellitus without complications (principal); Z79.4 Long term (current) use of insulin; E78.00 Pure hypercholesterolemia, unspecified; R74.01 Elevation of levels of liver transaminase levels; I10 Essential (primary) hypertension; E55.9 Vitamin D deficiency, unspecified; K21.9 Gastro-esophageal reflux disease without esophagitis; M17.0 Bilateral primary osteoarthritis of knee; R41.3 Other amnesia; E66.9 Obesity, unspecified
CPT/HCPCS: 99214

== ENCOUNTER 2024-01-19 07:24 | Outpatient (REF) | payer OTHER, SELFPAY ==
[2024-01-19 07:38] LABS: MANUAL DIFF FLAG NO
[2024-01-19 09:10] LABS: Basophils Percent Auto 0.4 % (0-2); Eosinophils Absolute Auto 0.1 X10*3/uL (0.0-0.4); Eosinophils Percent Auto 1.9 % (0-4); Hemoglobin 13.5 g/dl (12.0-16.0); Imm Gran Abs Auto 0.01 X10*3/uL (0.00-0.03); Imm Gran Pct Auto 0.1 % (0.0-0.4); Lymphocytes Absolute Auto 2.2 X10*3/uL (1.2-4.9); Lymphocytes Percent Auto 31.7 % (20-40); Mean Corpuscular HGB Conc 31.4 g/dl (31.0-35.0); Mean Corpuscular Hemoglobin 25.3 pg (27.0-33.0); Mean Corpuscular Volume 80.7 fL (80.0-98.0); Mean Platelet Volume 10.2 fL (9.4-12.3); Monocytes Absolute Auto 0.4 X10*3/uL (0.1-1.2); Monocytes Percent Auto 6.1 % (2-11); Neutrophils Absolute Auto 4.2 x10*3/uL (2.0-8.3); Neutrophils Percent Auto 59.8 % (45-73); Platelet Count 245 X10*3/uL (160-400); Red Blood Count 5.33 X10*6/uL (4.20-5.50); Red Cell Distribution Width 14.6 % (11.0-16.0); White Blood Count 6.9 X10*3/uL (4.8-10.8)
[2024-01-19 09:14] LABS: Appearance Urine Clear; Color Urine Yellow; Glucose Urine UA Negative (Negative); Leukocyte Esterase Urine Negative (Negative); Nitrite Urine Negative (Negative); Urine Blood Negative (Negative); Urine Ketones Negative (Negative); Urine Protein Negative (Neg-Trace)
[2024-01-19 09:19] LABS: Estimated Average Glucose 160 mg/dL; Hemoglobin A1c % 7.2 % (<6.0)
[2024-01-19 09:56] LABS: Alanine Aminotransferase 39 U/L (0-31); Albumin Level 4.1 g/dL (3.5-5.0); Alkaline Phosphatase 103 U/L (39-117); Anion Gap 15 (12-20); Aspartate Amino Transferase 27 U/L (5-31); Bilirubin Total 0.5 mg/dL (0.0-1.0); Blood Urea Nitrogen 21 mg/dL (9-16); Calcium 9.5 mg/dL (8.4-10.2); Carbon Dioxide 23 mmol/L (22-29); Chloride 105 mmol/L (96-108); Cholesterol 169 mg/dL (<200); Creatinine Urine 137.59 mg/dL; Estimated Glomerular Filt Rate 54; Glucose Fasting 137 mg/dL (60-99); HDL Cholesterol 52 mg/dL (>40); LDL Cholesterol Calculated 99 mg/dL (<100); Microalbum/Creatinine Ratio Ur 24.7 ug/mg cr (<30); Potassium 4.4 mmol/L (3.3-5.1); Sodium 139 mmol/L (135-145); Total Protein 7.8 g/dL (6.5-8.0); Triglycerides 90 mg/dL (<150)
[2024-01-19 09:58] LABS: TSH reflex Free T4 2.87 uIU/mL (0.32-4.0); Vitamin D 25-OH Total 36.3 ng/mL (>30)
[2024-01-19 10:24] LABS: Folate 7.3 ng/mL (> or = 4.0); Vitamin B12 652 pg/mL (200-900)
== END 2024-01-19 07:25 | disposition home or self-care (01) ==
LOC: HO.LAB 07:24
PROVIDERS: PCP Internal Medicine; Visit Provider Internal Medicine
DX: R30.0 Dysuria (principal); E78.00 Pure hypercholesterolemia, unspecified; E55.9 Vitamin D deficiency, unspecified; D64.9 Anemia, unspecified; E11.9 Type 2 diabetes mellitus without complications; E53.8 Deficiency of other specified B group vitamins
CPT/HCPCS: 36415; 80053; 80061; 81003; 82043; 82306; 82570; 82607; 82746; 83036; 84443; 85025

== ENCOUNTER 2024-03-28 10:01 | Outpatient (AMB) | payer BC, SELFPAY ==
--- NOTE | 2024-03-28 10:31 | MHC.PC.OV ---
Vital Signs 03/28/24 10:32 Height 4 ft 10 in Weight 165 lb 4 oz BMI 34.5 BP 124/80 Blood Pressure Location Lt brachial Position Sitting Pulse 76 Pulse Source Pulse Oximeter Pulse Oximetry (%) 98 Oxygen Delivery Method Room Air Intake Visit Reasons: PE Calender Feeder Required: No Accompanied by: Self / Same As Patient Allergies No Known Allergies Allergy (Mild, Verified 03/28/24 11:08) NOT APPLICABLE Medication List - Last Reconciled 03/28/24 by Roman Trinh MD atorvastatin 20 mg PO DAILY 90 days blood sugar diagnostic As directed blood sugar diagnostic (FreeStyle Lite Strips) DIRECTED- TEST TWICE A DAY cholecalciferol (vitamin D3) 50 mcg PO DAILY 90 days citalopram 10 mg PO DAILY 90 days dicyclomine 20 mg PO TID PRN FreeStyle Raisa 14 Day Milroy (flash glucose scanning reader) As directed NS FreeStyle Raisa 14 Day Sensor (flash glucose sensor) As directed NS Humalog KwikPen Insulin (insulin lispro) Inject 5 to 10 units as instructed 3 times a day with meals dosed per sliding scale subcutaneously; 30 days NS insulin glargine (Lantus Solostar U-100 Insulin) 33 units (0.33 mL) subcut BEDTIME 60 days insulin lispro units subcut lancets (FreeStyle Lancets) 28 gauge topical TID lisinopril 5 mg PO DAILY 90 days omeprazole 20 mg PO DAILY ondansetron 4 mg PO Q8H PRN pen needle, diabetic (BD Ultra-Fine Bethany Pen Needle) 1 ea subcut QID Tobacco use date assessed: 03/28/24 Fall risk assessment: No Falls in past year Last assessed Fall Risk: 03/28/24 Dental Screening Dental Screen Date: 03/28/24 Did you have a dental visit in the last 12 months?: No Did you have a dental problem in the last 6 months where you did not have access to dental care?: No Was dental information given to patient?: No HPI PE HPI Details Patient comes in today for her annual physical examination States that she currently feels okay Relates that she spent some time in [place] with family last month and was not completely compliant with her diet She denies any headaches or dizziness Denies any chest pains, no SOB No nausea/vomiting, no abdominal pain No change in bowel habits noted She denies any acute urinary symptoms She had her follow up labs done a couple of months ago - to discuss her results although she admits that she got these done before she went down to [place] She is currently overdue on all of her cancer screenings [facility], [facility] Medical History Benign essential hypertension Vitamin D deficiency Obesity (BMI 30-39.9) Depression Elevated LFTs GERD without esophagitis Pure hypercholesterolemia Type 2 diabetes mellitus without complication, with long-term current use of insulin Surgical History History of tubal ligation History of section History of excision of pilonidal cyst History of laparoscopic cholecystectomy Family History Father Medical history unknown Mother Medical history unknown Maternal Grandmother S/P CABG x 1 Myocardial infarction Family/Other Renal cell cancer Social History Housing: House Alcohol intake: current Alcohol intake frequency: does not drink Patient Tobacco Use Status: Never used Tobacco Second Hand Smoke Exposure: No service: No Current occupational status: retired Cognitive needs: No Hearing needs: No Vision needs: Yes (reading glasses) Questionnaire PHQ-9 Over the last 2 weeks, how often have you been bothered by any of the following problems? 1. Little interest or pleasure in doing things: not at all 2. Feeling down, depressed, or hopeless: not at all 3. Trouble falling or staying asleep, or sleeping too much: not at all 4. Feeling tired or having little energy: not at all 5. Poor appetite or overeating: not at all 6. Feeling bad about yourself - or that you are a failure or have let yourself or your family down: not at all 7. Trouble concentrating on things, such as reading the newspaper or watching television: not at all 8. Moving or speaking so slowly that other people could have noticed. Or the opposite - being so fidgety or restless that you have been moving around a lot more than usual: not at all 9. Thoughts that you would be better off or of hurting yourself in some way: not at all Total score: 0 Depression Screening Interpretation: Negative Depression Screening Done: Yes 88496 - PHQ-9 Billing: Yes Source: Developed by Drs. Daren Rocha, Carolin Stack, Gelacio Henry and colleagues, with an educational mark from [employer]. Thrive Questionnaire Date Thrive assessed: 03/28/24 I am a: Patient What is your living situation today?: I have a steady place to live Within the past 12 months, did the food you bought not last and you didn't have the money to get more?: Never true Within the past 12 months, did you worry whether your food would run out before you got money to buy more?: Never true Do you have trouble paying for medicines?: No Do you have trouble getting transportation to medical appointments?: No Do you have trouble paying your heating and electricity bill?: No Do you have trouble taking care of your child, family member or friend?: No Do you have trouble with day-to-day activities such as bathing, preparing meals, shopping, managing finances, etc.?: No Are you currently unemployed and looking for a job?: No Are you interested in more education?: No Please select the resources that you would like help with: None Currently or been in a relationship where the following occur: No concerns reported THRIVE Score: 0 AUDIT C Alcohol Use Questionnaire (AUDIT-C) 1. How often do you have a drink containing alcohol?: Never 3. How often do you have six or more drinks on one occasion?: Never Total Score: 0 Score Reviewed/Action Taken: Yes SCOTTY-7 AMB Questionnaire SCOTTY-7 Date SCOTTY - 7 assessed: 03/28/24 Feeling nervous, anxious, or on edge: 0 = Not at all Not being able to stop or control worryin = Not at all Worrying too much about different things: 0 = Not at all Trouble relaxin = Not at all Being so restless that it is hard to sit still: 0 = Not at all Becoming easily annoyed or irritable: 0 = Not at all Feeling afraid as if something awful might happen: 0 = Not at all Total SCOTTY-7 score (0-4 normal; 5-9 mild; 10-14 moderate; 15-21 severe): 0 Source: Developed by Carolin SquiresW. Sreekanth, Gelacio Henry and colleagues, with an educational mark from [employer]. Review of Systems Const Denies chills, Denies fatigue, Denies fever(s), Denies headache(s) and Denies malaise Eyes Denies blurry vision, Denies change in vision, Denies irritation and Denies itchy eyes ENT Denies dysphagia, Denies dizziness, Denies headache(s), Denies neck pain and Denies odynophagia Card Denies chest pain, Denies rapid heart rate, Denies irregular heart rhythm, Denies palpitations and Denies dyspnea Resp Denies chest congestion, Denies cough, Denies dyspnea and Denies wheezing GI Denies abdominal pain, Denies bloating, Denies constipation, Denies dysphagia, Denies heartburn, Denies diarrhea, Denies nausea, Denies odynophagia and Denies vomiting Denies hematuria, Denies urinary frequency, Denies dysuria, Denies urinary incontinence and Denies urinary urgency Musc Denies back pain, Reports arthralgias (over both knees, on and off) and Denies neck pain Skin/Breast Denies breast pain, Denies breast mass, Denies change in pigmentation, Denies lesions, Denies rash and Denies unusual bruising Neuro Denies dizziness, Denies headache(s) and Denies paresthesias Psych Denies anxiety and Denies depression Endo Denies fatigue and Denies palpitations Tre/Lymph Denies easy bruising Aller/Immun Denies itchy eyes and Denies wheezing Physical exam (Primary Care) Vital Signs: Last Vital Signs Pulse 76 03/28/24 10:32 BP 124/80 03/28/24 10:32 Pulse Ox 98 03/28/24 10:32 Oxygen Delivery Method Room Air 03/28/24 10:32 BMI result Body Mass Index 34.5 Tobacco/Smoking Status: Tobacco use Status Tobacco use date assessed 03/28/24 03/28/24 10:36 Patient Tobacco Use Status Never used Tobacco 03/28/24 10:36 PHQ-9: PHQ-9 Score PHQ-9: Total score 0 03/28/24 11:25 Depression Screening Interpretation: Negative Thrive Assessment: Date of Thrive Assessment Date Thrive assessed 03/28/24 03/28/24 10:36 Currently or been in a relationship where the following occur: No concerns reported Const General: no acute distress, alert and awake Orientation/consciousness: patient oriented x3 HENMT Head: Yes normocephalic and Yes atraumatic Ears: external ears normal, TM's normal bilaterally and EAC's normal General nose exam: No nasal discharge present Face and sinus: Yes normal facial exam and Yes sinuses nontender Teeth and gingiva: dentition normal Throat: Yes posterior oropharynx normal and Yes tonsils normal (no TP congestion) Eyes Eyelids: Yes eyelids normal Conjunctivae: conjunctivae normal Pupils: Equal, round and reactive pupils present EOM: EOMs intact bilaterally Neck Neck: Yes no lymphadenopathy and Yes supple Thyroid: Thyroid normal Resp Auscultation: clear to auscultation bilaterally, no rales and no wheezes Cardio Rate: regular rate Rhythm: regular rhythm Heart sounds: no murmurs GI Palpation (GI): Soft to palpation, nontender and No hepatosplenomegaly present Auscultation: normal bowel sounds General: Yes no CVA tenderness Back/Spine/Pelvis Back: no CVA tenderness Thoracic/Lumbar Spine: thoracic and lumbar spine normal to inspection Skin Lesions: no lesions Rashes: no rashes Neuro General: patient oriented x3, moves all extremities, no focal motor deficits and CN's II-XI intact bilaterally Cranial nerves: Yes Equal, round and reactive pupils present Cognition (Neuro): normal cognition Gait exam (Neuro): Normal gait present Extrem General: Yes no clubbing, cyanosis or edema Right lower extremity: knee Details: tenderness and normal ROM; no swelling Left lower extremity: knee Details: tenderness and normal ROM; no swelling Results AMB Hemoglobin A1c AMB Hemoglobin A1c 7.6 % Last Edit by RHODA Araya on 03/28/24 11:26 Results Reviewed Results Reviewed: Laboratory Last Values Hgb A1c (Clinic) 7.6 % (4.0-6.0) H 03/28/24 11:25 Laboratory Tests 01/19/24 07:37 WBC 6.9 Hgb 13.5 Hct 43.0 Plt Count 245 Sodium 139 Potassium 4.4 Creatinine 1.04 Estimated GFR 54 Fasting Glucose 137 H Hemoglobin A1c % 7.2 H Calcium 9.5 D AST 27 ALT 39 H Triglycerides 90 Cholesterol 169 LDL Cholesterol, Calc 99 HDL Cholesterol 52 Vitamin B12 652 25-OH Vitamin D Total 36.3 TSH 2.87 Ur Specific Dawson 1.020 Assessment and Plan Assessment & Plan (1) Annual physical exam: Code(s): Z00.00 - Encounter for general adult medical examination without abnormal findings Plan: Results of her labs done back in December 2023 reviewed and discussed with patient She is overdue on all of her cancer screenings and we will get all of these updated today (2) Type 2 diabetes mellitus without complication, with long-term current use of insulin: Code(s): E11.9 - Type 2 diabetes mellitus without complications; 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 Plan: Her in-office HgbA1c today is at 7.6%; her HgbA1c was at 7.2% on her labs done a couple of months ago - goal is at least < 7.0% Reinforced diabetic diet Continue Lantus 33 units daily at bedtime and Novolog FlexPen dosed 3 times a day with meals per sliding scale for now Metformin was stopped last year (per patient request) when she was experiencing frequent upset stomach while on the Rx Continue Lisinopril 5 mg QD - she was started on this for renoprotection last year She was previously referred for nutrition counseling and also to endocrinology a few months ago for further evaluation and management but patient has not been seen yet States that she has been attending her 's nutrition / dietitian consults with him over the past few months and feels that she has learned a lot from them She is up-to-date on her annual eye exam and foot exam (3) Pure hypercholesterolemia: Code(s): E78.00 - Pure hypercholesterolemia, unspecified Plan: Reinforced low cholesterol diet Continue Atorvastatin 20 mg QD Will recheck her labs and fasting lipids in 3 months for follow up (4) Elevated LFTs: Code(s): R79.89 - Other specified abnormal findings of blood chemistry Plan: Her ALT was still slightly elevated on her recent labs from a couple of months ago; AST and Alkaline phosphatase levels were normal - this is again most likely related to her weight Will continue to monitor her LFTs regularly (5) Benign essential hypertension: Code(s): I10 - Essential (primary) hypertension Plan: Reinforced low sodium diet Continue Lisinopril 5 mg QD - was started on Rx BOTH to help lower her blood pressure and for renoprotection (as she is a diabetic) (6) Vitamin D deficiency: Code(s): E55.9 - Vitamin D deficiency, unspecified Plan: Continue Vitamin D3 2000 units QD (7) GERD without esophagitis: Code(s): K21.9 - Gastro-esophageal reflux disease without esophagitis Plan: Dietary restrictions reinforced Continue Omeprazole 20 mg QD (8) Primary osteoarthritis of knees, bilateral: Code(s): M17.0 - Bilateral primary osteoarthritis of knee Plan: X-rays of the knees done back in 06/2013 revealed (+) OA changes She was sent for repeat bilateral knee x-rays a few months ago but patient did not get these done; states that she will get them done if her knee pain gets worse Discussed again option of referring her to orthopedics if her knee pain gets worse or her x-rays show (+) disease progression (9) Memory impairment: Comment: mother and maternal grandfather were both diagnosed with dementia in their later years Code(s): R41.3 - Other amnesia Plan: She was referred to and seen by neurology last year - was diagnosed as MCI and sent for some additional labs, which came out okay She was started on Sertraline 25 mg QD back then but did not start taking it; she is currently on Citalopram 10 mg QD instead (10) Depression: Code(s): F32.9 - Major depressive disorder, single episode, unspecified Qualifiers: Active/Remission status: currently active Depression Type: major depressive disorder Major depression episode severity: unspecified Major depression recurrence: recurrent Qualified Code(s): F33.9 - Major depressive disorder, recurrent, unspecified Plan: She was started on Sertraline 25 mg QD by neurology a couple of months ago but patient states that she has not started taking this yet and she instead went back on her previous Rx of Citalopram 10 mg QD and feels that she is doing well on this (11) Obesity (BMI 30-39.9): Code(s): E66.9 - Obesity, unspecified Plan: Reinforced diet/exercise as tolerated/lose weight (12) Colon cancer screening: Code(s): Z12.11 - Encounter for screening for malignant neoplasm of colon Plan: She had her last colonoscopy done in [address] Connors - (+) tubular adenoma She was recommended to get repeat colonoscopy in 5 years (2022) Will refer her back to GI for repeat colonoscopy (13) Breast cancer screening by mammogram: Code(s): Z12.31 - Encounter for screening mammogram for malignant neoplasm of breast Plan: She last had her screening mammogram done back in 2017 Repeat annual mammogram ordered today (14) Cervical cancer screening: Code(s): Z12.4 - Encounter for screening for malignant neoplasm of cervix Plan: She has not had her annual gynecology exam and pap smear done in over 10 years Will refer her to [facility] here at [facility] to restart her annual gynecology exam and pap smear (15) Osteoporosis screening: Code(s): Z13.820 - Encounter for screening for osteoporosis Plan: Patient states that she has never had a bone density scan done in the past Will send her for BMD to start osteoporosis screening Plan Follow up in 3 months Orders: Orders XR DEXA axial skeleton Today Z78.0 - Asymptomatic menopausal state Comprehensive [place]. Panel Fast 3 Months E78.00 - Pure hypercholesterolemia, unspecified Lipid Panel 3 Months E78.00 - Pure hypercholesterolemia, unspecified UA CC w/rflx Micro + Cult 3 Months R30.0 - Dysuria MM tomosynthesis screening BI Today Z12.31 - Encounter for screening mammogram for malignant neoplasm of breast Complete Blood Count Auto Diff 3 Months D64.9 - Anemia, unspecified Microalbumin, Random (w Creat) 3 Months E11.9 - Type 2 diabetes mellitus without complications TSH reflex Free T4 3 Months E78.00 - Pure hypercholesterolemia, unspecified Vitamin D 25-OH Total 3 Months E55.9 - Vitamin D deficiency, unspecified Hemoglobin A1c 3 Months E11.9 - Type 2 diabetes mellitus without complications AMB Hemoglobin A1c Today Z13.9 - Encounter for screening, unspecified 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 Referral Z12.4 - Encounter for screening for malignant neoplasm of cervix Gastroenterology Referral Z12.11 - Encounter for screening for malignant neoplasm of colon Coding Level of Care Code Est Pt Prev Care 40-64y([id number]) Diagnoses Annual physical exam Z00.00 Type 2 diabetes mellitus without complication, with long-term current use of insulin E11.9; Z79.4 Pure hypercholesterolemia E78.00 Elevated LFTs R79.89 Benign essential hypertension I10 Vitamin D deficiency E55.9 GERD without esophagitis K21.9 Primary osteoarthritis of knees, bilateral M17.0 Memory impairment R41.3 Episode of recurrent major depressive disorder, unspecified depression episode severity F33.9 Active/Remission status: currently active Depression Type: major depressive disorder Major depression episode severity: unspecified Major depression recurrence: recurrent Obesity (BMI 30-39.9) E66.9 Colon cancer screening Z12.11 Breast cancer screening by mammogram Z12.31 Cervical cancer screening Z12.4 Osteoporosis screening Z13.820
[2024-03-28 10:32] VITALS: BP 124/80; PULSE 76; O2SAT 98; BMI 34.5
== END 2024-03-28 11:28 | disposition home or self-care (01) ==
PROVIDERS: PCP Internal Medicine; Visit Provider Internal Medicine
DX: Z00.00 Encounter for general adult medical examination without abnormal findings (principal); E11.9 Type 2 diabetes mellitus without complications; Z79.4 Long term (current) use of insulin; E78.00 Pure hypercholesterolemia, unspecified; R79.89 Other specified abnormal findings of blood chemistry; I10 Essential (primary) hypertension; E55.9 Vitamin D deficiency, unspecified; K21.9 Gastro-esophageal reflux disease without esophagitis; M17.0 Bilateral primary osteoarthritis of knee; R41.3 Other amnesia; F33.9 Major depressive disorder, recurrent, unspecified; E66.9 Obesity, unspecified; Z12.11 Encounter for screening for malignant neoplasm of colon; Z12.31 Encounter for screening mammogram for malignant neoplasm of breast; Z12.4 Encounter for screening for malignant neoplasm of cervix; Z13.820 Encounter for screening for osteoporosis; Z13.9 Encounter for screening, unspecified
CPT/HCPCS: 83036; 99396

== ENCOUNTER 2024-08-12 10:55 | Outpatient (AMB) | payer BC, SELFPAY ==
[2024-08-12 10:57] VITALS: BP 160/88; PULSE 74; O2SAT 98; BMI 35.1
--- NOTE | 2024-08-12 10:57 | A.OFFVIS_ITS ---
Vital Signs 08/12/24 10:57 Height 4 ft 10 in Weight 167 lb 15.876 oz BMI 35.1 BP 160/88 H Blood Pressure Location Rt brachial Position Sitting Pulse 74 Pulse Source Pulse Oximeter Pulse Oximetry (%) 98 Oxygen Delivery Method Room Air Intake Visit Reasons: Acid Reflux and colon screening Intake Note: NEW PATIENT Reason; Symptomatic screening Prior hx of colo/egd? Overdue. 2018 w/ Connors. TA Concerns/Questions? No significant GI concerns. Pt states that they still get reflux occasionally. PPI PRN. Pt manages with lifestyle and diet. Supervisor Liquefaction Required: No Allergies No Known Allergies Allergy (Mild, Verified 08/12/24 10:58) NOT APPLICABLE HPI HPI Acid Reflux and colon screening: Details: 64 year old? female with past medical history of diverticulosis, diverticulitis, history of cholecystectomy, GERD, hypercholesteremia, diabetes is here today for pre colonoscopy screening.? Patient was sent to us by her PCP.? Last colonoscopy in 2018 tubular adenoma found. Recommendation was for patient to return in 5 years. Patient or reports occasional acid reflux about once a week or so. Patient takes omeprazole as needed with effect. Patient also is avoiding dietary triggers. She is not eating late at night. Denies any personal or family history of gastrointestinal disease or CRC.? Patient is diabetic on Humalog and Lantus. Denies history of difficulty with sedation or anesthesia in the past.? Negative for history of sleep apnea.? Denies any history of cardiac, renal, pulmonary, or hepatic disease.?? No history of infectious? diseases like hepatitis A, B, C, HIV or tuberculosis.? Patient is not on any anticoagulation [facility] Medical History Benign essential hypertension Vitamin D deficiency Obesity (BMI 30-39.9) Depression Elevated LFTs GERD without esophagitis Pure hypercholesterolemia Type 2 diabetes mellitus without complication, with long-term current use of insulin Surgical History History of tubal ligation History of section History of excision of pilonidal cyst History of laparoscopic cholecystectomy Family History Father Medical history unknown Mother Medical history unknown Maternal Grandmother S/P CABG x 1 Myocardial infarction Family/Other Renal cell cancer Social History Housing: House Alcohol intake: current Alcohol intake frequency: does not drink Patient Tobacco Use Status: Never used Tobacco Second Hand Smoke Exposure: No service: No Current occupational status: retired Cognitive needs: No Hearing needs: No Vision needs: Yes (reading glasses) Physical Exam Vital Signs: Last Vital Signs Pulse 74 08/12/24 10:57 BP 160/88 H 08/12/24 10:57 Pulse Ox 98 08/12/24 10:57 Oxygen Delivery Method Room Air 08/12/24 10:57 BMI result Body Mass Index 35.1 Assessment & Plan Assessment & Plan (1) Colon cancer screening: Code(s): Z12.11 - Encounter for screening for malignant neoplasm of colon Category: Medical Plan Patient denies any GI, cardiac or respiratory symptoms.? Denies any issues with anesthesia in the past.? Denies any history of sleep apnea.? No history infectious diseases in the past or present.? Not on any anticoagulation therapy.? No family or personal history of colon cancer or polyps.? Patient denies melena, hematochezia, unintentional weight loss or ribbon like stools.? Tubular adenoma on colonoscopy in 2018, 5 year recommendation made. Patient is on Humalog and Lantus. Hold Humalog day before procedure, half Lantus dose 2 nights and 1 night before procedure. Patient reports nausea and acid reflux once or twice a week depending on what she eats. May continue omeprazole. Discussed at length the pre-procedure,? prep, diet & medications as well as what to expect prior, during and after the procedure.?? Stressed the importance of good bowel prep.? Recommended the use of Vaseline or Calmoseptine OTC & baby wipes with bowel movements to promote comfort.? ?Patient verbalizes understanding and agrees to plan of care.? She was given the opportunity to ask questions and all questions answered.? We will see her after the procedure.? Medications: New polyethylene glycol 3350 (Miralax) As directed by gastroenterology department at [facility] 238 grams PO ONCE 238 grams 0RF Z12.11 - Encounter for screening for malignant neoplasm of colon bisacodyl (Dulcolax (bisacodyl)) take 4 tabs at noon the day before your colonoscopy 20 mg (4 x 5 mg) PO ONCE 4 tabs 0RF 1 day Z12.11 - Encounter for screening for malignant neoplasm of colon Coding Level of Care Code New Pt Level 3 (65860) Diagnoses Colon cancer screening Z12.11 Time Spent (min) 40 Comment 30 minutes spent with patient and additional 10 minutes spent reviewing her records
== END 2024-08-12 12:37 | disposition home or self-care (01) ==
PROVIDERS: PCP Internal Medicine; Visit Provider Nurse Practitioner Family
DX: K21.9 Gastro-esophageal reflux disease without esophagitis (principal); Z12.11 Encounter for screening for malignant neoplasm of colon; Z86.0101 Personal history of adenomatous and serrated colon polyps
CPT/HCPCS: 99203

== ENCOUNTER 2024-08-21 09:26 | Outpatient (REF) | payer BC, SELFPAY ==
[2024-08-22 12:48] LABS: Bacterial Vaginosis PCR NEGATIVE (Negative); Candida Group PCR NOT DETECTED (Not Detect); Candida glab krusei PCR NOT DETECTED (Not Detect); Trichomonas vaginalis PCR NOT DETECTED (Not Detect)
== END 2024-08-21 09:27 | disposition home or self-care (01) ==
LOC: HO.LAB 09:26
PROVIDERS: PCP Internal Medicine; Visit Provider Advanced Practice Midwife
DX: Z01.411 Encounter for gynecological examination (general) (routine) with abnormal findings (principal); R32 Unspecified urinary incontinence; N89.8 Other specified noninflammatory disorders of vagina
CPT/HCPCS: 81515

== ENCOUNTER 2024-08-21 10:02 | Outpatient (REF) | payer BC, SELFPAY ==
[2024-09-01 10:13] LABS: HPV Genotype 16 Negative (Negative); HPV Genotype 18 Negative (Negative); HPV High Risk Negative (Negative)
== END 2024-08-21 10:03 | disposition home or self-care (01) ==
LOC: HO.LNP 10:02
PROVIDERS: Visit Provider Advanced Practice Midwife
DX: Z01.419 Encounter for gynecological examination (general) (routine) without abnormal findings (principal); R32 Unspecified urinary incontinence
CPT/HCPCS: 87626; 88175

== ENCOUNTER → 2024-08-28 11:00 | Outpatient (BNV) | payer BC, SELFPAY | PROVIDERS: PCP Internal Medicine; Visit Provider Internal Medicine | DX: Z12.31 Encounter for screening mammogram for malignant neoplasm of breast (principal) | CPT/HCPCS: 77063; 77067 ==

== ENCOUNTER 2025-05-07 08:13 | Outpatient (REF) | payer MEDICARE, SELFPAY ==
--- OUTSIDE RECORDS SUMMARY | 2025-05-07 08:24 | XMS_ITS | Clinical Summary ---
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 Name Role Phone Unavailable Primary Care Provider Unavailabl e Social History Tobacco Use Types Packs/Day Years Used Date Smoking Tobacco: Never Assessed Comments Unknown Sex and Gender Information Value Date Recorded Sex Assigned at Female 11/13/2024 11:01 AM EDT Legal Sex Female 9:51 AM EDT Gender Identity Female 11/13/2024 11:01 AM EDT Sexual Orientation Straight 11/13/2024 11 :01 AM EDT Plan of Treatment Upcoming Encounters Date Type Department Care Team (Late st Contact Info) Description 05/18/2025 8:00 AM EDT Office Visit [facility] [address] [place] [address] Lisa Yun Health Maintenance Due Date Last Done Comments CT Colonography 1960 Colonoscopy 1960 Colorectal Cancer Screening 1960 Depression Screening 1960 FIT DNA/Cologuard 1960 FIT 1960 FOBT 1960 SDOH Screening 1960 Sigmoidoscopy 1960 Alcohol/Substance Use Screening 1972 Tobacco Screening 1972 Hepatitis C Screening 02/21/1978 DTaP/Tdap/Td Vaccines (1 - Tdap) 02/21/1979 Pap Smear 02/21/1981 Cervical Cancer Screening 02/21/1990 HPV/Cotest 02/21/1990 Mammogram 2000 Pneumococcal Vaccine: 50+ Ye ars (1 of 1 - PCV) 02/21/2010 Zoster Vaccines (1 of 2) 02/21/2010 COVID-19 Vaccine (2023-2 5 season) 2025 Influenza Vaccine (#1) 2025 RSV Patients and Pa tients Aged 60 years or older (1 - 1-dose 75+ series) 02/21/2035 HIB Vaccines Aged Out No longer eligi ble based on patient's age to complete this topic HPV Vaccines Aged Out No longer eligi ble based on patient's age to complete this topic Hepatitis A Vaccines Aged Out No long er eligible based on patient's age to complete this topic Hepatitis B Vaccines Aged Out No long er eligible based on patient's age to complete this topic IPV Vaccines Aged Out No longer eligi ble based on patient's age to complete this topic Meningococcal B Vaccine Aged Out No l onger eligible based on patient's age to complete this topic Meningococcal Vaccine Aged Out No marge tc eligible based on patient's age to complete this topic RSV under 20 months Aged Out No longe r eligible based on patient's age to complete this topic Rotavirus Vaccines Aged Out No longer eligible based on patient's age to complete this topic Insurance DENTAL - [facility]
[2025-05-07 08:39] LABS: MANUAL DIFF FLAG NO
[2025-05-07 08:46] LABS: Hematocrit 45.2 % (37.0-47.0); Hemoglobin 14.1 g/dl (12.0-16.0); Imm Gran Abs Auto 0.02 X10*3/uL (0.00-0.03); Imm Gran Pct Auto 0.2 % (0.0-0.4); Lymphocytes Absolute Auto 1.6 X10*3/uL (1.2-4.9); Mean Corpuscular HGB Conc 31.2 g/dl (31.0-35.0); Mean Corpuscular Hemoglobin 25.1 pg (27.0-33.0); Mean Corpuscular Volume 80.4 fL (80.0-98.0); NRBC Abs Auto 0.000 X10*3/uL (0.0-0.012); NRBC Pct Auto 0.0 /100WBC (0.0-0.2); Platelet Count 250 X10*3/uL (160-400); Red Blood Count 5.62 X10*6/uL (4.20-5.50); White Blood Count 8.4 X10*3/uL (4.8-10.8)
[2025-05-07 09:26] LABS: Alanine Aminotransferase 91 U/L (0-31); Albumin Level 4.4 g/dL (3.5-5.0); Alkaline Phosphatase 123 U/L (39-117); Anion Gap 13 (12-20); Aspartate Amino Transferase 59 U/L (5-31); Blood Urea Nitrogen 16 mg/dL (9-16); Calcium 10.0 mg/dL (8.4-10.2); Carbon Dioxide 26 mmol/L (22-29); Chloride 106 mmol/L (96-108); Cholesterol 169 mg/dL (<200); Estimated Glomerular Filt Rate 58; HDL Cholesterol 53 mg/dL (>40); Potassium 4.6 mmol/L (3.3-5.1); Sodium 140 mmol/L (135-145); Total Protein 8.0 g/dL (6.5-8.0); Triglycerides 105 mg/dL (<150)
[2025-05-07 10:30] LABS: Appearance Urine Cloudy; Glucose Urine UA Negative (Negative); PH 5.0 (5.0-9.0); Specific Gravity - Urine 1.025 (1.005-1.025); UMIC TRIGGER UACC YES
[2025-05-07 11:29] LABS: Microalbum/Creatinine Ratio Ur 54.4 ug/mg cr (<30)
== END 2025-05-07 08:14 | disposition home or self-care (01) ==
LOC: HO.LAB 08:13
PROVIDERS: Visit Provider Internal Medicine
DX: E11.9 Type 2 diabetes mellitus without complications (principal); E78.00 Pure hypercholesterolemia, unspecified; D64.9 Anemia, unspecified; E55.9 Vitamin D deficiency, unspecified
CPT/HCPCS: 36415; 80053; 80061; 81001; 81003; 82043; 82306; 82570; 83036; 84443; 85025

== ENCOUNTER 2025-05-08 11:10 | Outpatient (AMB) | payer MEDICARE, SELFPAY ==
[2025-05-08 11:14] VITALS: BP 116/82; PULSE 71; O2SAT 97; BMI 35.0
--- NOTE | 2025-05-08 11:16 | A.OFFVIS_ITS ---
Intake Vital Signs 05/08/25 11:14 Height 4 ft 10 in Weight 167 lb 4 oz BMI 35.0 BP 116/82 Blood Pressure Location Lt brachial Position Sitting Pulse 71 Pulse Source Pulse Oximeter Pulse Oximetry (%) 97 Oxygen Delivery Method Room Air Intake Visit Reasons: AWV Research Interviewer Required: No Accompanied by: Self / Same As Patient Allergies No Known Allergies Allergy (Mild, Verified 05/08/25 11:47) NOT APPLICABLE Medication List - Last Reconciled 05/08/25 by Roman Trinh MD atorvastatin 20 mg PO DAILY 90 days bisacodyl (Dulcolax (bisacodyl)) 20 mg (4 x 5 mg) PO ONCE 1 day blood sugar diagnostic As directed blood sugar diagnostic (FreeStyle Lite Strips) DIRECTED- TEST TWICE A DAY cholecalciferol (vitamin D3) 50 mcg PO DAILY 90 days citalopram 10 mg PO DAILY 90 days FreeStyle Raisa 14 Day [place] (flash glucose scanning reader) As directed NS FreeStyle Raisa 14 Day Sensor (flash glucose sensor) As directed NS Humalog KwikPen Insulin (insulin lispro) Inject 5 to 10 units as instructed 3 times a day with meals dosed per sliding scale subcutaneously; 30 days NS insulin glargine (Lantus Solostar U-100 Insulin) 33 units (0.33 mL) subcut BEDTIME 60 days insulin lispro units subcut lancets (FreeStyle Lancets) 28 gauge topical TID omeprazole 20 mg PO DAILY pen needle, diabetic (BD Ultra-Fine Bethany Pen Needle) 1 ea subcut QID polyethylene glycol 3350 (Miralax) 238 grams PO ONCE HPI AWV HPI Details Patient comes in today for her Annual Medicare Wellness Exam AND follow up visit States that she feels okay She denies any headaches or dizziness Denies any chest pains, no increased SOB No nausea/vomiting, no abdominal pain No change in bowel habits noted Needs her Lisinopril Rx refilled She had her follow up labs done yesterday - to discuss her results [place] of care was reviewed and updated today Patient does not have a healthcare proxy in place or on file; they were provided with HCP and MOLST forms and instructed to complete these as soon as possible IPPE/AWV: c/o of Annual Wellness Visit, initial visit. Medical / Social History Reviewed Past Medical History Yes . [place] of Care / Care Team list updated Yes . Surgical/Hospitalization History Yes . Current Medications (including OTC and supplements) Yes . Family History Yes . Tobacco Control form Yes . AUDIT-C (Alcohol use) form Yes . Illicit drug use in Social History Yes . Current diagnosis of depression? No Appropriate PHQ2/PHQ9 completed Yes . Data entered by Trailer Truck Driver and reviewed by provider Home Safety Throw rugs? No Grab bars? No Raised toilet seats? No Working smoke detectors? Yes Working carbon monoxide detectors? Yes Data entered by Trailer Truck Driver and reviewed by provider Activities of Daily Living (ADLs) Difficulty bathing or showering? No Difficulty dressing? No Difficulty using the toilet? No Difficulty getting in and out of bed? No Difficulty walking? No Receives help from another person with any of the above tasks? No Instrumental Activities of Daily Living (IADLs) Uses the telephone without help Gets to places out of walking distance without help Goes shopping for groceries without help Prepares own meals without help Does own minor home maintenance without help Does own laundry without help Does own housework without help Manages own money without help Currently takes medications? Yes Takes medication without help End-of-Life Planning Discussed advance directive Yes Advance directive on file Discussed wishes expressed in advance directive agreed to following patient's wishes Fall Risk: Fall History Have you had any falls with injury in the past year? No . Have you had two or more falls in the past year? No . Fall Risk Assessment: No falls in the past year . HRA filled out by the patient, reviewed by Provider and scanned. [facility] Medical History Incontinence Urinary leakage Benign essential hypertension Vitamin D deficiency Obesity (BMI 30-39.9) Depression Elevated LFTs GERD without esophagitis Pure hypercholesterolemia Type 2 diabetes mellitus without complication, with long-term current use of insulin Surgical History History of tubal ligation History of section History of excision of pilonidal cyst History of laparoscopic cholecystectomy Family History Father Medical history unknown Mother Medical history unknown Maternal Grandmother S/P CABG x 1 Myocardial infarction Family/Other Renal cell cancer Social History Housing: House Alcohol intake: current Alcohol intake frequency: does not drink Patient Tobacco Use Status: Never used Tobacco Second Hand Smoke Exposure: No service: No Current occupational status: retired Cognitive needs: No Hearing needs: No Vision needs: Yes (reading glasses) Questionnaire Medicare Wellness Checkup [age] What gender do you identify with?: female During the past 4 weeks, how much have you been bothered by emotional problems such as feeling anxious, depressed, irritable, sad or downhearted, and blue?: quite a bit During the past 4 weeks, has your physical & emotional health limited your social activities with family, friends, neighbors, or groups?: not at all During the past 4 weeks, how much bodily pain have you generally had?: very mild pain During the past 4 weeks, was someone available to help you if you needed & wanted help?: yes, as much as I wanted During the past 4 weeks, what was the hardest physical activity you could do for at least 2 minutes?: heavy Can you get to places out of walking distance without help? (For eg., can you travel alone on buses, taxis or drive your car?): Yes Can you go shopping for groceries or clothes without someone's help?: Yes Can you prepare your own meals?: Yes Can you do your housework without help?: Yes Because of any health problems, do you need the help of another person with your personal care needs such as eating, bathing, dressing or getting around the house?: No Can you handle your own money without help?: Yes During the past 4 weeks, how would you rate your health in general?: very good During the past 4 weeks how have things been going for you?: pretty well Are you having difficulties driving your car?: no Do you always fasten your seat belt when you are in a car?: yes, usually During past 4 weeks, have you been bothered by the following: never: Falling or dizzy when standing up, Sexual problems?, Trouble eating well?, Problems using the telephone? and Tiredness or fatigue? and sometimes: Teeth or denture problems? Have you fallen 2 or more times in the past year?: No Are you afraid of falling?: No Are you a smoker?: no During the past 4 weeks, how many drinks of wine, beer, or other alcoholic beverages did you have?: no alcohol at all Do you exercise for about 20 minutes 3 or more times a week?: yes, most of the time Have you been given information to help with the following?: no: Hazards in your house that might hurt you? How often do you have trouble taking medicines the way you have been told to take them?: I always take medicine as prescribed How confident are you that you can control & manage most of your health problems?: very confident What is your race?: or origin or descent Mini Mental State Exam (MMSE) Orientation What is the (year) (season) (date) (day) (month)?: year, season, date, day and month Where are we (state) (county) (town or city) (hospital) (floor)?: state, county, town or city, hospital/clinic and floor Score Score: 10 Activity of Daily Living Bathing - sponge bath, tub bath or shower: receives no assistance (gets in/out by self, if usual bathing means Dressing - getting clothes from closets & drawers, including inner/outer garments & fasteners.: gets clothes & gets completely dressed without help Toileting - going to the 'toilet room' for urine/bowel elimination & cleaning self/arranging clothes: goes to toilet room, cleans self, arranges clothes without help Transfer: moves in & out of bed and chair without help (may use support object) Continence: controls urination/bowel movements completely by self Feeding: feeds self without help Total Score: 0 Information obtained from: patient Using telephone: independent Traveling: independent Shopping: independent Preparing meals: independent Housework: independent Taking medicine: independent Managing money: independent PHQ-9 Over the last 2 weeks, how often have you been bothered by any of the following problems? 1. Little interest or pleasure in doing things: not at all 2. Feeling down, depressed, or hopeless: several days 3. Trouble falling or staying asleep, or sleeping too much: several days 4. Feeling tired or having little energy: several days 5. Poor appetite or overeating: several days 6. Feeling bad about yourself - or that you are a failure or have let yourself or your family down: not at all 7. Trouble concentrating on things, such as reading the newspaper or watching television: not at all 8. Moving or speaking so slowly that other people could have noticed. Or the opposite - being so fidgety or restless that you have been moving around a lot more than usual: not at all 9. Thoughts that you would be better off or of hurting yourself in some way: not at all Total score: 4 Depression Screening Interpretation: Positive Depression Screening Follow-up: Existing condition and In treatment Depression Screening Done: Yes 83939 - PHQ-9 Billing: Yes Source: Developed by Drs. Daren Rocha, Carolin Stack, Gelacio Henry and colleagues, with an educational mark from [employer]. PHQ-2/PHQ-9 PHQ-2 Over the last 2 weeks, how often have you been bothered by any of the following problems? 1. Little interest or pleasure in doing things: not at all 2. Feeling down, depressed, or hopeless: several days Total score: 1 If score is 3 or greater, continue 3. Trouble falling or staying asleep, or sleeping too much: several days 4. Feeling tired or having little energy: several days 5. Poor appetite or overeating: several days 6. Feeling bad about yourself - or that you are a failure or have let yourself or your family down: not at all 7. Trouble concentrating on things, such as reading the newspaper or watching television: not at all 8. Moving or speaking so slowly that other people could have noticed. Or the opposite - being so fidgety or restless that you have been moving around a lot more than usual: not at all 9. Thoughts that you would be better off or of hurting yourself in some way: not at all Total score: 4 0-4 None-Minimal, 5-9 Mild, 10-14 Moderate, 15-19 Moderately Severe, 20-27 Severe Source: Developed by Drs. Daren Rocha, Carolin Stack, Gelacio Henry and colleagues, with an educational mark from [employer]. Thrive Questionnaire Date Thrive assessed: 05/08/25 I am a: Patient What is your living situation today?: I have a steady place to live Within the past 12 months, did the food you bought not last and you didn't have the money to get more?: Never true Within the past 12 months, did you worry whether your food would run out before you got money to buy more?: Never true Do you have trouble paying for medicines?: No Do you have trouble getting transportation to medical appointments?: No Do you have trouble paying your heating and electricity bill?: No Do you have trouble taking care of your child, family member or friend?: No Do you have trouble with day-to-day activities such as bathing, preparing meals, shopping, managing finances, etc.?: No Are you currently unemployed and looking for a job?: No Are you interested in more education?: No Please select the resources that you would like help with: None Currently or been in a relationship where the following occur: No concerns reported THRIVE Score: 0 SCOTTY-7 AMB Questionnaire SCOTTY-7 Date SCOTTY - 7 assessed: 05/08/25 Feeling nervous, anxious, or on edge: 0 = Not at all Not being able to stop or control worryin = Not at all Worrying too much about different things: 3 = Nearly every day Trouble relaxin = Not at all Becoming easily annoyed or irritable: 1 = Several days Feeling afraid as if something awful might happen: 0 = Not at all Source: Developed by Drs. Daren Rocha, Carolin Stack, Gelacio Henry and colleagues, with an educational mark from [employer]. Review of Systems Const Denies chills, Denies fatigue, Denies fever(s) and Denies headache(s) ENT Denies dysphagia, Denies dizziness, Denies otalgia, Denies headache(s), Denies neck pain and Denies odynophagia Card Denies chest pain, Denies irregular heart rhythm, Denies palpitations and Denies dyspnea Resp Denies chest congestion, Denies cough and Denies dyspnea GI Denies abdominal pain, Denies constipation, Denies dysphagia, Denies heartburn, Denies diarrhea, Denies nausea, Denies odynophagia and Denies vomiting Denies difficulty voiding, Denies nocturia, Denies dysuria and Denies urinary urgency Musc Denies back pain, Reports arthralgias (over both knees, on and off) and Denies neck pain Skin/Breast Denies rash Neuro Denies dizziness, Denies headache(s) and Denies paresthesias Psych Denies anxiety and Denies depression Endo Denies fatigue and Denies palpitations Tre/Lymph Denies easy bruising Physical Exam Exam Exam: IPPE/AWV: Balance Romberg Yes . Tandem walk Yes . Walk and Turn Yes . Rise from sit to stand Yes . Vision Corrective lens No Vision screen pass Hearing Whisper test pass . Urinary incont. no. EKG Not clinically necessary. Vital Signs: Last Vital Signs Pulse 71 05/08/25 11:14 BP 116/82 05/08/25 11:14 Pulse Ox 97 05/08/25 11:14 Oxygen Delivery Method Room Air 05/08/25 11:14 BMI result Body Mass Index 35.0 Const General: no acute distress and alert Orientation/consciousness: patient oriented x3 HEENT Ears: TM's normal bilaterally and EAC's normal Throat: Yes posterior oropharynx normal and Yes tonsils normal (no TP congestion noted) Neck Neck: Yes supple and No lymphadenopathy Thyroid: Thyroid normal Resp Auscultation: clear to auscultation bilaterally, no rales and no wheezes Cardio Rate: regular rate Rhythm: regular rhythm Heart sounds: no murmurs GI Palpation (GI): Soft to palpation and nontender Auscultation: normal bowel sounds General: Yes no CVA tenderness Back/Spine/Pelvis Back: no CVA tenderness Thoracic/Lumbar Spine: No lumbar spinal tenderness Skin Rashes: no rashes Neuro General: patient oriented x3 Cognition (Neuro): normal cognition Extrem General: Yes no clubbing, cyanosis or edema Psych Thought process: Normal thought process present Results Reviewed Results Reviewed: Laboratory Tests 05/07/25 05/07/25 08:34 08:38 WBC 8.4 Hgb 14.1 Hct 45.2 Plt Count 250 Sodium 140 Potassium 4.6 Creatinine 0.97 Estimated GFR 58 Fasting Glucose 127 H Hemoglobin A1c % 8.0 H Calcium 10.0 AST 59 H ALT 91 H Alkaline Phosphatase 123 H Triglycerides 105 Cholesterol 169 LDL Cholesterol, Calc 95 HDL Cholesterol 53 25-OH Vitamin D Total 44.0 TSH 3.18 Ur Specific [place] 1.025 Urine Protein 30 (1+) H Urine Glucose (UA) Negative Urine Blood Negative Urine Nitrite Negative Ur Leukocyte Esterase Negative Microalb/Creat Ratio 54.4 H Assessment & Plan Assessment & Plan (1) Medicare annual wellness visit, initial: Code(s): Z00.00 - Encounter for general adult medical examination without abnormal findings Plan: ALESSIO updated HRA form reviewed, discussed and completed with patient; form will be scanned into patient's chart (2) Type 2 diabetes mellitus without complication, with long-term current use of insulin: Code(s): E11.9 - Type 2 diabetes mellitus without complications; Z79.4 - terminal system operator (current) use of insulin Plan: Her HgbA1c was at 8.0% on her labs done yesterday (in-office HgbA1c was at 7.6% when it was previously checked a year ago in March 2024) - goal is at least <7.0% Reinforced diabetic diet Continue Lantus 33 units daily at bedtime and Humalog KwikPen dosed 3 times a day with meals per sliding scale for now Metformin was stopped a couple of years ago (per patient request) due to side effects - she was experiencing frequent upset stomach while on the Rx Continue Lisinopril 5 mg QD - she was started on this for renoprotection a couple of years ago She was previously referred for nutrition counseling and also to endocrinology for further evaluation and management but patient was not seen States that she has been attending her 's nutrition / dietitian consults with him over the past few months and feels that she has learned a lot from them Will refer her again to endocrinology for further management of her diabetes Will also refer him to ophthalmology for his annual diabetic eye exam (3) Pure hypercholesterolemia: Code(s): E78.00 - Pure hypercholesterolemia, unspecified Plan: Results of her labs done yesterday reviewed and discussed with patient Reinforced low cholesterol diet Continue Atorvastatin 20 mg QD Will recheck her labs and fasting lipids in 3 months for follow up (4) Benign essential hypertension: Code(s): I10 - Essential (primary) hypertension Plan: Reinforced low sodium diet Continue Lisinopril 5 mg QD - was started on Rx BOTH to help lower her blood pressure and for renoprotection (5) Elevated LFTs: Code(s): R79.89 - Other specified abnormal findings of blood chemistry Plan: Her LFTs remain elevated on her recent labs and are slightly higher than they were previously This is again most likely due to her weight (hepatosteatosis) but will send her for abdominal US for further evaluation Will continue to monitor her LFTs regularly (6) Vitamin D deficiency: Code(s): E55.9 - Vitamin D deficiency, unspecified Plan: Continue Vitamin D3 2000 units QD (7) GERD without esophagitis: Code(s): K21.9 - Gastro-esophageal reflux disease without esophagitis Plan: Dietary restrictions reinforced Continue Omeprazole 20 mg QD (8) Primary osteoarthritis of knees, bilateral: Code(s): M17.0 - Bilateral primary osteoarthritis of knee Plan: X-rays of the knees done back in 06/2013 revealed (+) OA changes She was sent for repeat bilateral knee x-rays a few months ago but patient did not get these done Have advised her thay we can reorder her x-rays if her knee pain gets worse and discussed again option of referring her to orthopedics if her x-rays show (+) disease progression (9) Memory impairment: Comment: mother and maternal grandfather were both diagnosed with dementia in their later years Code(s): R41.3 - Other amnesia Plan: She was referred to and seen by neurology a couple of years ago - was diagnosed as MCI and sent for some additional labs, which came out okay She was started on Sertraline 25 mg QD back then but did not start taking it; she is currently on Citalopram 10 mg QD instead (10) Depression: Code(s): F32.9 - Major depressive disorder, single episode, unspecified Qualifiers: Depression Type: major depressive disorder Major depression recurrence: recurrent Active/Remission status: currently active Major depression episode severity: unspecified Qualified Code(s): F33.9 - Major depressive disorder, recurrent, unspecified Plan: She was started on Sertraline 25 mg QD by neurology a couple of months ago but patient states that she has not started taking this yet and she instead went back on her previous Rx of Citalopram 10 mg QD and feels that she is doing well on this (11) Obesity (BMI 30-39.9): Code(s): E66.9 - Obesity, unspecified Plan: Reinforced diet/exercise as tolerated/lose weight (12) Colon cancer screening: Code(s): Z12.11 - Encounter for screening for malignant neoplasm of colon Plan: Patient states that she's had a screening colonoscopy done in the past but has not had one in over 10 years now Will refer her to GI for repeat colonoscopy Plan Follow up in 4 months Orders: Orders Complete Blood Count Auto Diff 4 Months D64.9 - Anemia, unspecified Vitamin B12 and Folate 4 Months E53.8 - Deficiency of other specified B group vitamins US abdomen complete 05/08/25 R10.9 - Unspecified abdominal pain, R79.89 - Other specified abnormal findings of blood chemistry Comprehensive [place]. Panel Fast 4 Months E78.00 - Pure hypercholesterolemia, unspecified Lipid Panel 4 Months E78.00 - Pure hypercholesterolemia, unspecified Microalbumin, Random (w Creat) 4 Months E11.9 - Type 2 diabetes mellitus without complications Hemoglobin A1c 4 Months E11.9 - Type 2 diabetes mellitus without complications TSH reflex Free T4 4 Months E78.00 - Pure hypercholesterolemia, unspecified UA CC w/rflx Micro + Cult 4 Months R30.0 - Dysuria Vitamin D 25-OH Total 4 Months E55.9 - Vitamin D deficiency, unspecified Referrals Endocrinology Referral E11.9 - Type 2 diabetes mellitus without complications, Z79.4 - terminal system operator (current) use of insulin Gastroenterology Referral Z12.11 - Encounter for screening for malignant neoplasm of colon Ophthalmology Referral E11.9 - Type 2 diabetes mellitus without complications Medications: Refilled lisinopril 5 mg PO DAILY 90 tabs 1RF 90 days E11.9 - Type 2 diabetes mellitus without complications, I10 - Essential (primary) hypertension, Z79.4 - terminal system operator (current) use of insulin Quality Reporting (2019) Depression/Bipolar (159/160/161/177) PHQ-9: Total score: 4 Coding Level of Care Code Medicare First (G0438) Est Pt Level 4 (05833) Diagnoses Medicare annual wellness visit, initial Z00.00 Type 2 diabetes mellitus without complication, with long-term current use of in sulin E11.9; Z79.4 Pure hypercholesterolemia E78.00 Benign essential hypertension I10 Elevated LFTs R79.89 Vitamin D deficiency E55.9 GERD without esophagitis K21.9 Primary osteoarthritis of knees, bilateral M17.0 Memory impairment R41.3 Episode of recurrent major depressive disorder, unspecified depression episode severity F33.9 Depression Type: major depressive disorder Major depression recurrence: recurrent Active/Remission status: currently active Major depression episode severity: unspecified Obesity (BMI 30-39.9) E66.9 Colon cancer screening Z12.11 CPT Codes Advance Care Planning - Time spent: 1-15 minutes, not on file ([id number]) Additional Codes PHQ-9 - 45490 - PHQ-9 Billing: Yes ([id number]) Advance Care Planning Advance Care Planning discussion: Exists, not on file (HCP and MOLST forms provided to patient - she will fill them out and bring them back) Date of discussion: 05/08/25 Who was present: patient, PCP Time spent: 1-15 minutes, not on file
--- OUTSIDE RECORDS SUMMARY | 2025-05-08 13:56 | XMS_ITS | Clinical Summary ---
Author Organization [employer] Address [address] [place] [address] [address] [place] [address] Care Team Providers Care Bookkeeper Receptionist Name Role Phone Unavailable Primary Care Provider [...] Description 05/18/2025 8:00 AM EDT Office Visit [facility] [address] [place] [address] Lisa Yun Health Maintenance Due Date Last [...] to complete this topic Insurance DENTAL - [facility]
== END 2025-05-08 12:06 | disposition home or self-care (01) ==
PROVIDERS: PCP Internal Medicine; Visit Provider Internal Medicine
DX: Z00.00 Encounter for general adult medical examination without abnormal findings (principal); E11.9 Type 2 diabetes mellitus without complications; Z79.4 Long term (current) use of insulin; E66.9 Obesity, unspecified; Z68.35 Body mass index [BMI] 35.0-35.9, adult; E78.00 Pure hypercholesterolemia, unspecified; I10 Essential (primary) hypertension; E55.9 Vitamin D deficiency, unspecified; K21.9 Gastro-esophageal reflux disease without esophagitis; M17.0 Bilateral primary osteoarthritis of knee; R41.3 Other amnesia; F33.9 Major depressive disorder, recurrent, unspecified

== ENCOUNTER → 2025-05-08 11:10 | Outpatient (BNVA) | payer MEDICARE, SELFPAY | PROVIDERS: PCP Internal Medicine; Visit Provider Internal Medicine | DX: Z00.00 Encounter for general adult medical examination without abnormal findings (principal); E11.9 Type 2 diabetes mellitus without complications; E78.00 Pure hypercholesterolemia, unspecified; I10 Essential (primary) hypertension; R79.89 Other specified abnormal findings of blood chemistry; E55.9 Vitamin D deficiency, unspecified; K21.9 Gastro-esophageal reflux disease without esophagitis; M17.0 Bilateral primary osteoarthritis of knee; R41.3 Other amnesia; F33.9 Major depressive disorder, recurrent, unspecified; E66.9 Obesity, unspecified; D64.9 Anemia, unspecified; E53.8 Deficiency of other specified B group vitamins; R10.9 Unspecified abdominal pain; Z79.4 Long term (current) use of insulin; Z68.35 Body mass index [BMI] 35.0-35.9, adult | CPT/HCPCS: 96127 ==

== ENCOUNTER 2025-05-15 08:22 | Outpatient (AMB) | payer MEDICARE, SELFPAY ==
[2025-05-15 08:24] VITALS: BP 130/72; PULSE 77; O2SAT 98; BMI 35.2
--- NOTE | 2025-05-15 08:24 | MHC.OFFVIS ---
Vital Signs 05/15/25 08:24 Height 4 ft 10 in Weight 168 lb 10.458 oz BMI 35.2 BP 130/72 Blood Pressure Location Lt brachial Position Sitting Pulse 77 Pulse Source Pulse Oximeter Pulse Oximetry (%) 98 Oxygen Delivery Method Room Air Intake Visit Reasons: Type 2 diabetes mellitus without complications Intake Note: New patient internally referred by PCP for T2DM. Last Diabetic Eye exam: Last exam was over 2 years ago but will be scheduling one soon. Last Podiatry Visit: Doesn't have one Random Glucose: 167 mg/dl Hgb A1C: 8.0% 05/07/2025 Industrial Health Engineer Required: No Accompanied by: Self / Same As Patient Allergies No Known Allergies Allergy (Mild, Verified 05/15/25 08:31) NOT APPLICABLE Medication List - Last Reconciled 05/15/25 by EDITA Falk atorvastatin 20 mg PO DAILY 90 days bisacodyl (Dulcolax (bisacodyl)) 20 mg (4 x 5 mg) PO ONCE 1 day blood sugar diagnostic As directed blood sugar diagnostic (FreeStyle Lite Strips) DIRECTED- TEST TWICE A DAY blood-glucose sensor (FreeStyle Raisa 3 Plus Sensor device) Apply 1 new sensor every 15 days as directed to monitor blood glucose continuously. 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 cholecalciferol (vitamin D3) 50 mcg PO DAILY 90 days citalopram 10 mg PO DAILY 90 days insulin glargine (Lantus Solostar U-100 Insulin) 33 units (0.33 mL) subcut BEDTIME 60 days insulin lispro units subcut insulin lispro (Humalog KwikPen (U-100) Insulin) Less than 150 units 0 units 150-199 mg/dL take 2 units 200-249 mg/dL take 4 units 250-299 mg/dL take 6 units 300-349 mg/dL take 8 units 350-399 mg/dL take 10 units >/=400 mg /dL take 12 units lancets (FreeStyle Lancets) 28 gauge topical TID lisinopril 5 mg PO DAILY 90 days omeprazole 20 mg PO DAILY pen needle, diabetic (BD Ultra-Fine [place] Pen Needle) 1 ea subcut QID polyethylene glycol 3350 (Miralax) 238 grams PO ONCE HPI Comments Details: 65-year-old female with a past medical history of osteoporosis, hypertension, memory impairment, depression, obesity, GERD, hyperlipidemia and type 2 diabetes presents for an initial consult for diabetic management. She was diagnosed with diabetes 5-10 years ago. She was initially started on metformin. Patient reports she started insulin approximately 4 years ago. There is a strong family history of type 2 diabetes. I reviewed today's CGM download: CGM active 83% Average glucose 180 G UT 7.6% Glucose variability 32.5% Very high 14% High 30% Target range 56% 0% hypoglycemia My interpretation is the patient has some hyperglycemia postprandially and nocturnally and blood sugars closer to target range overnight and early head start director and in the middle of the afternoon. Hemoglobin A1c 05/07/2025 8%. Current medication regimen: Lantus 33 units at bedtime and a sliding scale for Humalog: Less than 150 units 0 units 150-199 mg/dL take 2 units 200-249 mg/dL take 4 units 250-299 mg/dL take 6 units 300-349 mg/dL take 8 units 350-399 mg/dL take 10 units >/=400 mg /dL take 12 units Past medication: Metformin caused stomach pain Compliance issues: none Diet: Breakfast- coffee with milk and 2 tsp sugar, latvian muffin with cheese butter, sometimes eggs Lunch- sometimes eats this and sometimes doesn't Dinner- yellow rice with beans, protein or a beef stew with veggies Drinks water. No soda or juice Snacks/desserts: Oreos or these, doesn't have chips or candy No alcohol and nonsmoker. She does not exercise, but she has a treadmill. Hypoglycemia: Blood glucose 56 this morning, felt dizzy, nauseous and shakey. This happened a few times within the past month. She says this only happens when [place] and takes her Lantus insulin at 03:00 in the morning instead of her regular time. Hyperglycemia symptoms: None Eye exam: she was called to schedule by [facility]. Last exam 01/16/24 and no diabetic complications Microvascular complications: Nephropathy (CKD and microalbuminuria), neuropathy in her toes Macrovascular complications: Diabetic ulcers, CAD, CVA, PAD Hypertension: treated with lisinopril 5 mg Hyperlipidemia: treated with atorvastatin LDL at goal <100. Liver enzymes are elevated. She had a CAT scan of the abdomen and pelvis with IV contrast in October of 2022 which demonstrated that she is status post cholecystectomy and there were no hepatic lesions or biliary ductal dilatation. She denies abdominal pain. She gets acid reflux. She denies history of liver problems. ROS: Constitutional: No unexplained weight loss, fever, chills, fatigue or night sweats. Eyes: No vision changes, blurry vision, double vision Respiratory: No shortness of breath, cough or sputum production. Cardiovascular: No chest pain, chest pressure or chest discomfort. No palpitations or pedal edema. Skin: Denies discoloration Feet: Patient denies open wounds, ulcers. Physical exam: Constitutional: Alert, in no distress. Head: Normocephalic. Neck: Supple, Full range of motion. No lymphadenopathy. No palpable thyroid masses. Respiratory: Clear to auscultation. Cardiovascular: S1 S2 regular. No murmurs. Feet: Patient declined exam [facility] Medical History (Updated 05/15/25 @ 09:40 by EDITA Falk) Uncontrolled type 2 diabetes mellitus with hyperglycemia, with long-term current use of insulin Diabetic polyneuropathy Diabetic nephropathy Incontinence Urinary leakage Benign essential hypertension Vitamin D deficiency Obesity (BMI 30-39.9) Depression Elevated LFTs GERD without esophagitis Pure hypercholesterolemia Type 2 diabetes mellitus without complication, with long-term current use of insulin Surgical History History of tubal ligation History of section History of excision of pilonidal cyst History of laparoscopic cholecystectomy Family History Father Medical history unknown Mother Medical history unknown Maternal Grandmother S/P CABG x 1 Myocardial infarction Family/Other Renal cell cancer Social History Housing: House Alcohol intake: current Alcohol intake frequency: does not drink Patient Tobacco Use Status: Never used Tobacco Second Hand Smoke Exposure: No service: No Current occupational status: retired Cognitive needs: No Hearing needs: No Vision needs: Yes (reading glasses) Physical Exam Vital Signs: Last Vital Signs Pulse 77 05/15/25 08:24 BP 130/72 05/15/25 08:24 Pulse Ox 98 05/15/25 08:24 Oxygen Delivery Method Room Air 05/15/25 08:24 BMI result Body Mass Index 35.2 Office Procedures Glucose Monitoring Details Details: See [facility] [address] - Glucose monitoring, continuous-physician I&R Procedure code (CPT) selection complete Results Reviewed Results Reviewed: Laboratory Tests 05/07/25 05/07/25 08:34 08:38 Creatinine 0.97 Estimated GFR 58 Hemoglobin A1c % 8.0 H AST 59 H ALT 91 H Triglycerides 105 Cholesterol 169 LDL Cholesterol, Calc 95 HDL Cholesterol 53 TSH 3.18 Urine Creatinine 181.88 Urine Microalbumin 99.0 Microalb/Creat Ratio 54.4 H Assessment & Plan Assessment & Plan (1) Uncontrolled type 2 diabetes mellitus with hyperglycemia, with long-term current use of insulin: Code(s): E11.65 - Type 2 diabetes mellitus with hyperglycemia; Z79.4 - residential (current) use of insulin Category: Medical Plan: This is a 65-year-old female with uncontrolled type 2 diabetes with neurologic and renal manifestations. Discussed pathophysiology of Type II Diabetes Mellitus with the patient in detail.? I explained the rn long term care risks and complications associated with uncontrolled diabetes including nephropathy, neuropathy, peripheral vascular disease, retinopathy, increased risk of heart disease and stroke.? Discussed lifestyle modification with the patient. Recommended 30 minutes of moderately vigorous exercise 5 days per week to promote weight loss. She is going to start using her treadmill 5 days per week. I think she is a good candidate for an SGLT2 or GLP 1, but the patient does not want to change her medication or add medication at this time including insulin adjustment. She wants an opportunity to work on lifestyle modifications to target an A1c less than 7%. She is agreeable to a consult with the dietitian. Diabetic diet was reviewed in detail with the patient. Given information for ADA website. She will schedule her eye exam. She will be advanced to the Raisa 3+. Provided with written instructions for hypoglycemia. Strongly encouraged the patient to take Lantus before bedtime consistently to avoid low blood sugar. She declined prescription for glucose gel or tablets. (2) Diabetic nephropathy: Code(s): E11.21 - Type 2 diabetes mellitus with diabetic nephropathy Category: Medical Qualifiers: Diabetes mellitus type: due to underlying condition Qualified Code(s): E08.21 - Diabetes mellitus due to underlying condition with diabetic nephropathy Plan: Avoid NSAIDs. Continue lisinopril. Patient is not interested in SGLT2 at this time. Stay hydrated. (3) Elevated LFTs: Code(s): R79.89 - Other specified abnormal findings of blood chemistry Category: Medical Plan: Ordered ultrasound to screen for hepatic steatosis. (4) Benign essential hypertension: Code(s): I10 - Essential (primary) hypertension Category: Medical Plan: Continue lisinopril 5 mg daily. Recommended low-sodium diet and avoidance of caffeine. (5) Pure hypercholesterolemia: Code(s): E78.00 - Pure hypercholesterolemia, unspecified Category: Medical Plan: LDL is at goal. Continue atorvastatin. Plan Follow up in 6-8 weeks for type 2 diabetes. 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 1 ea 0RF EDITA Falk blood-glucose sensor (FreeStyle Raisa 3 Plus Sensor device) Apply 1 new sensor every 15 days as directed to monitor blood glucose continuously. 6 ea 1RF EDITA Falk Changed From Humalog KwikPen Insulin (insulin lispro) Inject 5 to 10 units as instructed 3 times a day with meals dosed per sliding scale subcutaneously; 30 days 15 mL 3RF NS E11.9 - Type 2 diabetes mellitus without complications, Z79.4 - residential (current) use of insulin To insulin lispro (Humalog KwikPen (U-100) Insulin) Less than 150 units 0 units 150-199 mg/dL take 2 units 200-249 mg/dL take 4 units 250-299 mg/dL take 6 units 300-349 mg/dL take 8 units 350-399 mg/dL take 10 units >/=400 mg /dL take 12 units E11.9 - Type 2 diabetes mellitus without complications, Z79.4 - residential (current) use of insulin Roman Trinh MD Refilled blood sugar diagnostic (FreeStyle Lite Strips) DIRECTED- TEST TWICE A DAY 100 strips 5RF EDITA Falk E11.9 - Type 2 diabetes mellitus without complications, Z79.4 - residential (current) use of insulin Discontinued FreeStyle Raisa 14 Day Sensor (flash glucose sensor) Discontinued Reason: Doctor's Order As directed 1 ea 5RF NS E11.9 - Type 2 diabetes mellitus without complications, Z79.4 - manager terminal (current) use of insulin FreeStyle Raisa 14 Day [place] (flash glucose scanning reader) Discontinued Reason: Doctor's Order As directed 1 ea 5RF NS E11.9 - Type 2 diabetes mellitus without complications, Z79.4 - residential (current) use of insulin Patient Instructions: If you experience low blood sugar (70), treat this by eating a chewable fruit candy like skittles or jelly beans (about 8 pieces), 4 ounces (1/2 cup) of fruit juice (not diet), 1 tablespoon of honey or 4 glucose tablets. If your blood sugar is under 50, take double the amount of one of the above. Recheck your blood sugar in 15 minutes. Continue Lantus 33 units at bedtime. If you have frequent lows decrease to 30 units nightly. Continue sliding for Humalog. You will be called to schedule the appointment with the chassis inspector. [facility] should also call you for delivery of your diabetic supplies. [email or web address] Coding Level of Care Code New Pt Level 5 (75788) Diagnoses Uncontrolled type 2 diabetes mellitus with hyperglycemia, with long-term current use of insulin E11.65; Z79.4 Diabetic nephropathy associated with diabetes mellitus due to underlying condition E08.21 Diabetes mellitus type: due to underlying condition Elevated LFTs R79.89 Benign essential hypertension I10 Pure hypercholesterolemia E78.00 CPT Codes Details - CPT: 84309 - Glucose monitoring, continuous-physician I&R ([id number]) Time Spent (min) 68 Comment Direct patient care, chart review, completing documentation
[2025-05-15 08:39] LABS: Glucose, Whole Blood 167 mg/dL (60-115)
== END 2025-05-15 09:30 | disposition home or self-care (01) ==
LOC: HO.ENCR 08:22
PROVIDERS: PCP Internal Medicine; Visit Provider Physician Assistant Medical
DX: E11.65 Type 2 diabetes mellitus with hyperglycemia (principal); Z79.4 Long term (current) use of insulin; E11.21 Type 2 diabetes mellitus with diabetic nephropathy; R79.89 Other specified abnormal findings of blood chemistry; I10 Essential (primary) hypertension; E78.00 Pure hypercholesterolemia, unspecified

== ENCOUNTER → 2025-05-15 08:22 | Outpatient (BNVA) | payer MEDICARE, SELFPAY | PROVIDERS: PCP Internal Medicine; Visit Provider Physician Assistant Medical | DX: E11.65 Type 2 diabetes mellitus with hyperglycemia (principal); E11.21 Type 2 diabetes mellitus with diabetic nephropathy; Z79.4 Long term (current) use of insulin; Z83.3 Family history of diabetes mellitus; R79.89 Other specified abnormal findings of blood chemistry; I10 Essential (primary) hypertension; E78.00 Pure hypercholesterolemia, unspecified | CPT/HCPCS: 82947; 99202 ==